=== PATIENT | male | born 1945 | race Caucasian/White ===

== ENCOUNTER 2020-03-19 06:56 | Outpatient (REF) | payer MEDICARE, MEDICAID, SELFPAY ==
--- NOTE | 2020-03-19 07:14 | XR_ITS ---
EXAMINATION: XR HIP, LEFT CLINICAL INFORMATION: Left hip pain. COMPARISON: None TECHNIQUE: 2 views of the left hip. FINDINGS: There is no fracture, dislocation or destructive process. There is mild hip joint narrowing. Fine chondrocalcinosis involves the articular cartilage. There are no erosive changes. There are mild degenerative changes left sacroiliac joint. Visualized pubis is unremarkable. Soft tissue planes are unremarkable. XR/XR hip LT min 2V IMPRESSION: 1. Mild left hip joint narrowing. Chondrocalcinosis articular cartilage. No erosive change. 2. Mild degenerative changes sacroiliac joint.
[2020-03-19 08:14] LABS: Alanine Aminotransferase 26 U/L (0-40); Albumin Level 4.1 g/dL (3.5-5.0); Alkaline Phosphatase 59 U/L (39-117); Anion Gap 12 (12-20); Aspartate Amino Transferase 21 U/L (5-37); Bilirubin Direct 0.2 mg/dL (0.0-0.5); Bilirubin Total 0.4 mg/dL (0.0-1.0); Blood Urea Nitrogen 7 mg/dL (9-16); Calcium 9.1 mg/dL (8.4-10.2); Carbon Dioxide 31 mmol/L (22-29); Chloride 95 mmol/L (96-108); Cholesterol 160 mg/dL; Estimated Glomerular Filt Rate > 60; Glucose Random 102 mg/dL (60-115); HDL Cholesterol 59 mg/dL; LDL Cholesterol Calculated 88 mg/dl; Potassium 4.4 mmol/l (3.3-5.1); Sodium 134 mmol/L (135-145); Total Protein 7.1 g/dL (6.5-8.0); Triglycerides 68 mg/dL
[2020-03-19 08:37] LABS: Thyroid Stimulating Hormone 0.79 mIU/mL (0.32-4.0)
== END 2020-03-19 06:57 | disposition home or self-care (01) ==
LOC: HO.LAB 06:56
PROVIDERS: Visit Provider Student in an Organized Health Care Education/Training Program
DX: M25.552 Pain in left hip (principal); E03.9 Hypothyroidism, unspecified; E78.00 Pure hypercholesterolemia, unspecified; I10 Essential (primary) hypertension
CPT/HCPCS: 73502; 80048; 80061; 80076; 84443

== ENCOUNTER 2021-09-21 11:17 | Outpatient (REF) | payer MEDICARE, MEDICAID, SELFPAY ==
--- NOTE | ~2021-09-21 | XR_ITS ---
EXAMINATION: XR CHEST CLINICAL INFORMATION: Short of breath COMPARISON: 07/17/2011 TECHNIQUE: 2 views of the chest were obtained. FINDINGS: The lungs are well expanded. There is no focal consolidation, edema, or effusion. No pneumothorax. The cardiomediastinal silhouette is within normal limits of size with a tortuous and calcified aorta. No acute osseous abnormality. XR/XR chest 2V IMPRESSION: Clear lungs.
== END 2021-09-21 11:18 | disposition home or self-care (01) ==
LOC: HO.XRAY 11:17
PROVIDERS: PCP Student in an Organized Health Care Education/Training Program; Visit Provider Student in an Organized Health Care Education/Training Program
DX: R06.02 Shortness of breath (principal)
CPT/HCPCS: 71046

== ENCOUNTER 2023-02-19 18:09 | Outpatient (REF) | payer MEDICARE, MEDICAID, SELFPAY ==
[2023-02-19 19:03] LABS: Influenza A PCR NEGATIVE (Negative); Influenza B PCR NEGATIVE (Negative); Resp Syncy Virus RNA Qual PCR NEGATIVE (Negative); SARS COV2 PCR INHOUSE NEGATIVE (Negative)
== END 2023-02-19 18:10 | disposition home or self-care (01) ==
LOC: HO.CHCLNP 18:09
PROVIDERS: Visit Provider Registered Nurse
DX: Z20.822 Contact with and (suspected) exposure to COVID-19 (principal); B34.9 Viral infection, unspecified
CPT/HCPCS: 0241U; 87070

== ENCOUNTER 2023-03-01 11:46 | Outpatient (REF) | payer MEDICARE, MEDICAID, SELFPAY ==
[2023-03-01 14:31] LABS: MANUAL DIFF FLAG NO
[2023-03-01 14:38] LABS: Basophils Absolute Auto 0.1 X10*3/uL (0.0-0.2); Basophils Percent Auto 0.8 % (0-2); Eosinophils Absolute Auto 0.5 X10*3/uL (0.0-0.4); Eosinophils Percent Auto 3.4 % (0-4); Hematocrit 37.4 % (42.0-52.0); Hemoglobin 12.1 g/dl (14.0-18.0); Imm Gran Abs Auto 0.06 X10*3/uL (0.00-0.03); Imm Gran Pct Auto 0.5 % (0.0-0.4); Lymphocytes Absolute Auto 0.8 X10*3/uL (1.2-4.9); Lymphocytes Percent Auto 6.2 % (20-40); Mean Corpuscular HGB Conc 32.4 g/dl (31.0-36.0); Mean Corpuscular Hemoglobin 27.8 pg (27.0-33.0); Mean Corpuscular Volume 85.8 fL (80.0-98.0); Mean Platelet Volume 8.7 fL (9.4-12.4); Monocytes Absolute Auto 1.2 X10*3/uL (0.1-1.2); Monocytes Percent Auto 9.2 % (2-11); Neutrophils Absolute Auto 10.5 x10*3/uL (2.0-8.3); Neutrophils Percent Auto 79.9 % (45-73); Platelet Count 375 X10*3/uL (160-400); Red Blood Count 4.36 X10*6/uL (4.60-5.80); Red Cell Distribution Width 14.3 % (11.0-16.0); White Blood Count 13.2 X10*3/uL (4.8-10.8)
[2023-03-01 15:01] LABS: Alanine Aminotransferase 14 U/L (0-40); Albumin Level 3.8 g/dL (3.5-5.0); Alkaline Phosphatase 51 U/L (39-117); Anion Gap 16 (12-20); Aspartate Amino Transferase 17 U/L (5-37); Bilirubin Direct 0.3 mg/dL (0.0-0.5); Bilirubin Total 0.5 mg/dL (0.0-1.0); Blood Urea Nitrogen 10 mg/dL (9-16); Calcium 9.4 mg/dL (8.4-10.2); Carbon Dioxide 24 mmol/L (22-29); Chloride 96 mmol/L (96-108); Cholesterol 119 mg/dL (<200); Estimated Glomerular Filt Rate > 60; Glucose Fasting 99 mg/dL (60-99); HDL Cholesterol 53 mg/dL (>40); LDL Cholesterol Calculated 55 mg/dL (<100); Potassium 4.1 mmol/L (3.3-5.1); Sodium 132 mmol/L (135-145); Triglycerides 55 mg/dL (<150)
[2023-03-01 15:17] LABS: Thyroid Stimulating Hormone 0.45 uIU/mL (0.32-4.0)
== END 2023-03-01 11:47 | disposition home or self-care (01) ==
LOC: HO.CHCLDS 11:46
PROVIDERS: Visit Provider Student in an Organized Health Care Education/Training Program
DX: Z12.5 Encounter for screening for malignant neoplasm of prostate (principal); R63.4 Abnormal weight loss; I21.9 Acute myocardial infarction, unspecified; I25.10 Atherosclerotic heart disease of native coronary artery without angina pectoris; E78.5 Hyperlipidemia, unspecified
CPT/HCPCS: 36415; 80048; 80061; 80076; 84153; 84443; 85025

== ENCOUNTER 2023-04-02 09:43 | Outpatient (REF) | payer MEDICARE, MEDICAID, SELFPAY ==
--- NOTE | ~2023-04-02 | US_ITS ---
EXAMINATION: US THYROID CLINICAL INFORMATION: Nontoxic single thyroid nodule. COMPARISON: None available. TECHNIQUE: Linear transducer barone-scale and color Doppler examination with attention to the region of the thyroid. Technically limited visualization secondary to thyroid gland low in neck. FINDINGS: SIZE: Measurements of the thyroid lobes and nodules are given in sagittal, anteroposterior and transverse dimensions respectively. Right Thyroid Lobe: 5.8 x 2.8 x 2.2 cm, volume 18.4 mL. Parenchyma: The gland echotexture is heterogeneous. Thyroid vascularity is normal. Left Thyroid Lobe: 5.7 x 2.0 x 2.3 cm, volume 13.6 mL. Parenchyma: The gland echotexture is heterogeneous. Thyroid vascularity is normal. Isthmus: 0.4 cm in maximum AP dimension. Estimated total number of nodules greater than or equal to 1 cm: 2. Busboy nodules are described as follows: 1. Location: Right isthmus. Size: 0.4 x 0.4 x 0.6 cm, volume 0.05 mL. Nodule characteristics: Composition: Solid (2). Echogenicity: Isoechoic (1). Shape: Not taller than wide (0). Margins: Smooth (0). Echogenic Foci: None (0). ACR TI-RADS total points: 3 ACR TI-RADS category: 3 2. Location: Right inferior. Size: 3.1 x 2.3 x 3.4 cm, volume of 12.6 mL. Nodule characteristics: Composition: Cannot be determined (2). Echogenicity: Very hypoechoic (3). Shape: Taller than wide (3). Margins: Irregular (2). Echogenic Foci: Macrocalcifications (1). Peripheral calcifications (2). ACR TI-RADS total points: 13 ACR TI-RADS category: 5 3. Location: Left inferior. Size: 1.7 x 1.6 x 1.6 cm, volume 2.2 mL. Nodule characteristics: Composition: Solid (2). Echogenicity: Hypoechoic (2). Shape: Not taller than wide (0). Margins: Lobulated (2). Echogenic Foci: Macrocalcifications (1). Peripheral calcifications (2). ACR TI-RADS total points: 9 ACR TI-RADS category: 5 NODES: No lymphadenopathy is seen in the tissue surrounding the thyroid gland. US/US thyroid IMPRESSION: Enlarged, heterogeneous multinodular thyroid gland. Right 3.4 cm TR 5 nodule and left 1.7 cm TR 5 nodule meet criteria for biopsy. Fine-needle aspiration recommended. This study was presented today 04/03/2023 at 6:30 AM for interpretation. PSA staff will provide results to referring provider at this time. ACR TI-RADS RECOMMENDATION REFERENCE: Ultrasound-guided fine-needle aspiration, followup ultrasound, no further follow up. * TR1 (0 point) and TR2 (2 points): No FNA or follow up. * TR3 (3 points): FNA if more than or equal to 2.5 cm in maximum dimension, followup ultrasound in 1, 3 and 5 years if 1.5 to 2.4 cm in maximum dimension. * TR4 (4-6 points): FNA if more than or equal to 1.5 cm in maximum dimension, followup ultrasound in 1, 2, 3 and 5 years if 1 to 1.4 cm in maximum dimension. * TR5 (more than or equal to 7 points): FNA if more than or equal to 1 cm in maximum dimension, followup ultrasound every year for 5 years if 0.5 to 0.9 cm in maximum dimension. * TR3, TR4 or TR5 nodules that are below the size threshold for followup receive no follow up.
== END 2023-04-02 09:44 | disposition home or self-care (01) ==
LOC: HO.US 09:43
PROVIDERS: Visit Provider Student in an Organized Health Care Education/Training Program
DX: E04.1 Nontoxic single thyroid nodule (principal)
CPT/HCPCS: 76536

== ENCOUNTER → 2023-04-13 13:20 | Outpatient (BNV) | payer MEDICARE, SELFPAY | PROVIDERS: PCP Student in an Organized Health Care Education/Training Program; Referring Provider Student in an Organized Health Care Education/Training Program; Visit Provider Internal Medicine Medical Oncology | DX: R63.4 Abnormal weight loss (principal); R91.8 Other nonspecific abnormal finding of lung field | CPT/HCPCS: 99203; 99213 ==

== ENCOUNTER 2023-06-01 13:42 | Outpatient (REF) | payer MEDICARE, SELFPAY ==
--- NOTE | ~2023-06-01 | CT_ITS ---
EXAMINATION: CT CHEST WITHOUT CONTRAST CLINICAL INFORMATION: Abnormal weight loss COMPARISON: None available. TECHNIQUE: Multidetector volumetric CT imaging of the chest was done. Axial MIP volume rendering provided. Sagittal and coronal reformatted images were obtained. This CT examination was performed using dose optimization techniques as appropriate, variously including the following: *Automated exposure control *Adjustment of mA and/or kV according to patient size (this includes techniques or standardized protocols for targeted exams where dose is matched to indication/reason for exam; i.e. extremities or head) *Use of iterative reconstruction technique DLP: 140.35 mGy-cm FINDINGS: LUNGS: Curvilinear atelectasis is seen in medial right lower lobe posterior basal segment. Sagittal atelectasis is seen at the medial border of left lower lobe posterior basal segment. -Nodule #1 (Series 5, image 113): 3.1 mm solid nodule, lateral peripheral right upper lobe apical segment. -Nodule #2 (Series 5, image 215): 3.6 mm solid nodule, posterior medial border of right upper lobe apical segment. -Nodule #3 (Series 5, image 252): 2.9 mm solid nodule, left upper lobe anterior segment. -Nodule #4 (Series 5, image 304): 3.1 mm solid nodule, left upper lobe anterior segment. -Nodule #5 (Series 5, image 306): 5.4 mm solid nodule, right lower lobe superior segment juxtapleural nodule attached to right major fissure. PLEURA: No pleural effusion or pneumothorax is seen. PERICARDIUM: No pericardial effusion is seen. MEDIASTINUM AND TOMASZ: A cluster of pretracheal and precarinal lymph nodes are seen. The largest right lower paratracheal lymph node containing central fatty hilum, measures 1.2 cm in short axis, series 3 image #24. Inadequate evaluation of the mediastinal and hilar lymph nodes due to absence of IV contrast filling the surrounding blood vessels. TRACHEOBRONCHIAL TREE: Trachea and bilateral mainstem bronchi are patent. THORACIC AORTA: The thoracic aorta is normal in size with scattered atherosclerotic calcifications. CORONARY ARTERY CALCIFICATIONS: Marked extensive PULMONARY ARTERIES: The main pulmonary arteries appear to be normal in size. CHEST WALL AND LOWER NECK: The subcutaneous and muscular chest wall are intact with no focal lesion. No abnormal mass lesion could be seen in the visualized lower neck. BONES: Mild thoracic dextroscoliosis, multilevel advanced degenerative thoracic disc disease, prominent sharp anterior and lateral syndesmophytes are present. No fracture or dislocation. No focal bone lesion diagnostic of metastatic disease could be seen in the thorax. VISUALIZED UPPER ABDOMEN: Bilateral adrenal glands are not enlarged. A simple cyst is seen in left hepatic dome segment 4A measuring 1.5 cm in diameter, mean attenuation of [address]/CT chest wo IV con IMPRESSION: 1. Multiple bilateral lung nodules are seen, as described above. The largest measures 5.4 mm in the right lower lobe attached to the right major fissure. 2. A cluster of pretracheal and precarinal lymph nodes are seen, the largest right lower paratracheal lymph node containing central fatty hilum, measures 1.2 cm in short axis. 3. Simple cyst in left hepatic dome segment 4A. According to the UPDATED 2017 Fleischner Society recommendations, the advised follow-up imaging for solid nodules <6 mm in the middle/lower lobes is no routine follow up. Fleischner guidelines were followed.
== END 2023-06-01 13:43 | disposition home or self-care (01) ==
LOC: HO.CT 13:42
PROVIDERS: PCP Student in an Organized Health Care Education/Training Program; Visit Provider Internal Medicine Medical Oncology
DX: R63.4 Abnormal weight loss (principal)
CPT/HCPCS: 71250

== ENCOUNTER 2023-09-07 10:11 | Outpatient (REF) | payer MEDICARE, SELFPAY ==
[2023-09-07 14:53] LABS: MANUAL DIFF FLAG NO
[2023-09-07 14:58] LABS: Basophils Absolute Auto 0.1 X10*3/uL (0.0-0.2); Basophils Percent Auto 1.3 % (0-2); Eosinophils Absolute Auto 0.4 X10*3/uL (0.0-0.4); Eosinophils Percent Auto 9.2 % (0-4); Hematocrit 35.6 % (42.0-52.0); Hemoglobin 11.1 g/dl (14.0-18.0); Lymphocytes Absolute Auto 1.2 X10*3/uL (1.2-4.9); Lymphocytes Percent Auto 24.4 % (20-40); Mean Corpuscular HGB Conc 31.2 g/dl (31.0-36.0); Mean Corpuscular Hemoglobin 27.6 pg (27.0-33.0); Mean Corpuscular Volume 88.6 fL (80.0-98.0); Mean Platelet Volume 9.2 fL (9.4-12.4); Monocytes Absolute Auto 0.4 X10*3/uL (0.1-1.2); Monocytes Percent Auto 7.3 % (2-11); Neutrophils Absolute Auto 2.8 x10*3/uL (2.0-8.3); Neutrophils Percent Auto 57.8 % (45-73); Platelet Count 338 X10*3/uL (160-400); Red Blood Count 4.02 X10*6/uL (4.60-5.80); Red Cell Distribution Width 15.4 % (11.0-16.0); White Blood Count 4.8 X10*3/uL (4.8-10.8)
== END 2023-09-07 10:12 | disposition home or self-care (01) ==
LOC: CF 10:11
PROVIDERS: Visit Provider Student in an Organized Health Care Education/Training Program
DX: D50.0 Iron deficiency anemia secondary to blood loss (chronic) (principal)
CPT/HCPCS: 36415; 85025

== ENCOUNTER 2024-07-15 09:27 | Outpatient (REF) | payer MEDICARE, SELFPAY ==
--- OUTSIDE RECORDS SUMMARY | 2024-07-15 10:14 | XMS_ITS | Encounter Summary ---
Author Organization [employer] Address [address] [place] [address] Care Team Providers Care Pouncer Name Role Phone Brianna Corral MD Primary Care Provider [phone] Reason for Visit * Reason Comments Transition Of Care (Tcm) HDF scheduled Encounter Details Date Type Department Care Team ([facility] st Contact Info) Description 07/07/2024 Patient Outreach [facility] MEDICINE [address] [place] [address] Brianna Corral MD [address] [place] [address] Transition Of Care (Tcm) (HDF scheduled) Social History Tobacco Use Types Packs/Day Years Used Date Smoking Tobacco: Former Cigarettes Smokeless Tobacco: Never Alcohol Use Standard Drinks/Week Comments Never 0 (1 standard drink = 0.6 oz pur e alcohol) Depression Answer Date Recorded Patient Health Questionnaire-9 Score 4 09/07/2023 Patient Health Questionnaire-9 Score 4 09/07/2023 Last PHQ-9: Questionnaire Data Not on file 0 09/07/2023 Housing Stability Answer Date Recorded What is your housing situation today? I have juanjose mathis 04/25/[address] you li ve. Do you have problems with any of the following? None of the above 04/25/2023 Food Insecurity Answer Date Recorded Within the past 12 months, y ou worried that your food would run out before you got money to buy more: Never True 04/25/2023 Within the past 12 months,th e food you bought just didn't last and you didn't have enough money to get more: Never True Transportation Answer Date Recorded In the past 12 months, has l ack of transportation kept you from medical appts, meetings, work or from getting things needed for daily living? No 04/25/2023 Utilities Answer Date Recorded In the past 12 months, has t he electric, gas, oil or water company threatened to shut off services in your home? No 04/25/2023 Depression Answer Date Recorded Patient Health Questionnaire-2 Score 2 09/07/2023 Sex and Gender Information Value Date Recorded Sex Assigned at Male 03/27/2022 10:26 AM EDT Legal Sex Male 10:26 AM EDT Gender Identity Transgender Male 03/27/2022 10:2 6 AM EDT Sexual Orientation Straight 03/02/2023 2: 51 PM EDT documented as of this encounter Miscellaneous Notes * Significant Event - Abbey Dietz - 07/07/2024 3:30 PM EST 07/07/24 1529 Hospital Discharges and Admission for [facility] Type of Visit Hospital Admission Date of Admission/Visit 06/04/24 Date of Discharge 07/09/24 Facility [facility] Diagnosis Pneumonia Disposition Discharged Home Follow-Up Actions Follow-Up Needed Provider appointment Follow-Up Outcome Spoke to Caregiver Initial Contact Date 07/07/24 Received incoming call from the [facility] Line. CM Spoke with Stacia from [phone] Patient has been scheduled for an HDF appointment on 07/15/2024 at 9:[address] Taylor requested discharge summaries to be faxed to the Care Management Department at [phone]. CC will follow up on discharge summary following patient's discharge. Insurance verified prior to scheduling. documented in this encounter Plan of Treatment Upcoming Encounters Date Type Department Care Team (Late st Contact Info) Description 07/22/2024 2:00 PM EST Office Visit [facility] ADULT D[facility]AL [address] [place] [address] Joyce Edwards [address] [place] [address] documented as of this encounter Visit Diagnoses Not on filedocumented in this encounter Additional Health Concerns Assessment Noted Time PHQ-9 Depression Total Score: 4 09/07/19 24 9:31 AM EDT documented as of this encounter Care Teams Pouncer Relationship Specialty Start Date End Date Brianna Corral MD [address] [place] [id number] PCP - General Family Medicine 10/06/14 Consignd 04/22/24 documented as of this encounter
--- OUTSIDE RECORDS SUMMARY | 2024-07-15 10:14 | XMS_ITS ---
Author Organization [facility] Address [address] [place] [address] Care Team Providers Care Access Services Assistant Name Role Phone YAQUELIN PONCHO Primary Care Provider Unavailabl e Jean Marie Sequeira Unavailable [phone] Nurys Landeros Unavailable Unavailable Encounters Encounter Location Date Provider Diagnosis [facility] [address] [place] [address] 12/11/2023 Jean Marie Sequeira PLAN OF TREATMENT No Information
--- OUTSIDE RECORDS SUMMARY | 2024-07-15 10:14 | XMS_ITS | Encounter Summary ---
Author Organization [employer] Address [address] [place] [address] Care Team Providers Care Investment Recovery Technician Name Role Phone Vickie Claire MD Primary Care Provider + Encounter Details Date Type Department Care Team (Late st Contact Info) Description 06/05/2024 Lab Requisition [facility] - Main Lab [address] [facility] [place] [address] Vickie Claire MD [address] [address] Essential (primary) hypertension; Pneumonia, unspecified organism Social History Tobacco Use Types Packs/Day Years Used Date Smoking Tobacco: Never Assessed Sex and Gender Information Value Date Recorded Sex Assigned at Not on file Legal Sex Male 10:09 PM EST Gender Identity Not on file Sexual Orientation Not on file documented as of this encounter Plan of Treatment Not on file documented as of this encounter Procedures Procedure Name Priority Date/Time Associated Diagnosis Comments COMPLETE BLOOD COUNT Routine 06/05/2024 9:58 AM EST Essential (primary) hypertension Pneumonia, unspecified organism BASIC METABOLIC PANEL Routine 06/05/2024 9:58 AM EST Essential (primary) hypertension Pneumonia, unspecified organism documented in this encounter Results * (ABNORMAL) Basic metabolic panel (06/05/2024 9:58 AM EST) Sodium 136 133 - 145 mmol/L LAB CHEMISTRY METHOD 06/05/2024 12:08 PM [facility] Potassium 3.8 3.5 - 5.5 mmol/L LAB CHEMISTRY METHOD 06/05/2024 12:08 PM EST [facility] Chloride 100 96 - 110 mmol/L LAB CHEMISTRY METHOD 06/05/2024 12:08 PM [facility] CO2 29 21 - 32 mmol/L LAB CHEMISTRY METHOD 06/05/2024 12:08 PM [facility] Anion Gap 7 3 - 11 LAB CHEMISTRY METHOD 06/05/2024 12:08 PM [facility] Glucose 135(H) 70 - 100 mg/dL LAB CHEMISTRY METHOD 06/05/2024 12:08 PM [facility] BUN 12 5 - 25 mg/dL LAB CHEMISTRY METHOD 06/05/2024 12:08 PM [facility] Creatinine 0.59(L) 0.70 - 1.30 mg/dL LAB CHEMISTRY METHOD 06/05/2024 12:08 PM [facility] eGFR 100 >=60 mL/min/1. 73m2 LAB CHEMISTRY METHOD 06/05/2024 12:08 PM [facility] Comment:Calculation based on the??Chronic Kidney Disease Epidemiology Collaboration (CKD-EPI) equation refit??without adjustment for race. BUN/Creatinine Ratio 20.3 LAB CHEMISTRY METHOD 06/05/2024 12:08 PM [facility] Calcium 8.6 8.5 - 10.5 mg/dL LAB CHEMISTRY METHOD 06/05/2024 12:08 PM [facility] Blood Venous blood specimen / Unknown Venipuncture / Unknown 06/05/2024 9:58 AM EST 06/05/2024 10:46 AM EST us Vickie Claire MD LAB BLOOD ORDERABLES Fin al Result [facility] [address] [place] [address], * (ABNORMAL) Complete blood count (06/05/2024 9:58 AM EST) WBC 11.2(H) 4.8 - 10.8 K/mcL LAB HEMETOLOGY METHOD 06/05/2024 11:04 AM [facility] RBC 4.20(L) 4.50 - 5.50 M/mcL LAB HEMETOLOGY METHOD 06/05/2024 11:04 AM [facility] Hemoglobin 11.5(L) 13.5 - 17.5 g/dL LAB HEMETOLOGY METHOD 06/05/2024 11:04 AM [facility] Hematocrit 36.5(L) 42.0 - 54.0 % LAB HEMETOLOGY METHOD 06/05/2024 11:04 AM [facility] MCV 86.3 79.0 - 98.0 FL LAB HEMETOLOGY METHOD 06/05/2024 11:04 AM [facility] MCH 27.2 27.0 - 32.0 pcg LAB HEMETOLOGY METHOD 06/05/2024 11:04 AM [facility] MCHC 31.5(L) 32.0 - 37.0 g/dL LAB HEMETOLOGY METHOD 06/05/2024 11:04 AM [facility] RDW 15.3(H) 11.0 - 15.0 % LAB HEMETOLOGY METHOD 06/05/2024 11:04 AM [facility] Platelets 476(H) 130 - 400 K/mcL LAB HEMETOLOGY METHOD 06/05/2024 11:04 AM [facility] MPV 9.1 7.0 - 11.0 FL LAB HEMETOLOGY METHOD 06/05/2024 11:04 AM [facility] NRBC 0.0 <1.0 % LAB HEMETOLOGY METHOD 06/05/2024 11:04 AM [facility] NRBC Absolute 0.00 <0.10 K/mcL LAB HEMETOLOGY METHOD 06/05/2024 11:04 AM [facility] Blood Venous blood specimen / Unknown Venipuncture / Unknown 06/05/2024 9:58 AM EST 06/05/2024 10:46 AM EST us Vickie Claire MD LAB BLOOD ORDERABLES Fin al Result [facility] [address] [place] [address], documented in this encounter Visit Diagnoses Diagnosis Essential (primary) hypertension Unspecified essential hypertension Pneumonia, unspecified organism documented in this encounter Care Teams Investment Recovery Technician Relationship Specialty Start Date End Date Vickie Claire MD [address] [place] [address] PCP - General Family Medicine 06/05/24 documented as of this encounter
--- OUTSIDE RECORDS SUMMARY | 2024-07-15 10:14 | XMS_ITS | Encounter Summary ---
Author Organization [employer] Address [address] [place] [address] Care Team Providers Care Incising Machine Operator Name Role Phone Brianna Corral MD Primary Care Provider [phone] Encounter Details Date Type Department Care Team (Late Contact Info) Description 10/02/2022 Orders Only [facility] MED & PEDS [address] [place] [address] Hailey Taylor LPN Social History Tobacco Use Types Packs/Day Years Used Date Smoking Tobacco: Former Cigarettes Smokeless Tobacco: Never Alcohol Use Standard Drinks/Week Comments Never 0 (1 standard drink = 0.6 oz pur e alcohol) Sex and Gender Information Value Date Recorded Sex Assigned at Male 03/27/2022 10:26 AM EDT Legal Sex Male 10:26 AM EDT Gender Identity Transgender Male 03/27/2022 10:2 6 AM EDT Sexual Orientation Straight 03/02/2023 2: 51 PM EDT documented as of this encounter Plan of Treatment Upcoming Encounters Date Type Department Care Team (Late Contact Info) Description 07/22/2024 2:00 PM EST Office Visit [facility] AD[facility] D[facility] [address] [place] [address] Joyce Edwards [address] [place] [address] documented as of this encounter Visit Diagnoses Not on filedocumented in this encounter Care Teams Incising Machine Operator Relationship Specialty Start Date End Date Brianna Corral MD [address] [place] [address] PCP - General Family Medicine 10/06/14 [place] 04/22/24 documented as of this encounter
--- OUTSIDE RECORDS SUMMARY | 2024-07-15 10:14 | XMS_ITS | Encounter Summary ---
Author Organization [employer] Address [address] [place] [address] Care Team Providers Care Resource Paraprofessional Name Role Phone Brianna Corral MD Primary Care Provider [phone] Reason for Visit * Reason Onset Date Comments [facility] 12/12/2023 Encounter Details Date Type Department Care Team ([facility] st Contact Info) Description 12/12/[address] [facility] MEDICINE [address] [place] [address] Brianna Corral MD [address] [place] [address] [facility] Social History Tobacco Use Types Packs/Day Years [...] as of this encounter Miscellaneous Notes * Telephone Encounter - James Santoro - 12/12/2023 8:20 AM EDT Tc from [facility] with [facility] calling from Dr. Sequeira office informing pt no call no show his appt. documented in this encounter Plan of Treatment Upcoming Encounters Date Type Department Care Team (Late st Contact Info) Description 07/22/2024 2:00 PM EST Office Visit [facility] [address] [place] [address] EdwardsBeth mathiassharita [address] [place] [address] documented as of this encounter Visit Diagnoses Not on filedocumented in this encounter Additional Health Concerns Assessment Noted Time PHQ-9 Depression Total Score: 4 09/07/19 9:31 AM EDT documented as of this encounter Care Teams Resource Paraprofessional Relationship Specialty Start Date End Date Brianna Corral MD [address] [place] [address] PCP - General Family Medicine 10/06/14 [place] 04/22/24 documented as of this encounter
--- OUTSIDE RECORDS SUMMARY | 2024-07-15 10:14 | XMS_ITS | Encounter Summary ---
Author Organization [employer] Address [address] [place] [address] Care Team Providers Care Supervising Law Enforcement Analyst Name Role Phone Brianna Corral MD Primary Care Provider [phone] Reason for Visit * Reason Comments Med Refill Encounter Details Date Type Department Care Team (Late st Contact Info) Description 06/27/[address] [facility]EDS [address] [place] [address] Brianna Corral MD [address] [place] [address] Hypothyroidism, unspecified type Social History Tobacco Use Types Packs/Day Years [...] 07/22/2024 2:00 PM EST Office Visit [facility] [address] [place] [address] Beth Edwardsanpresamuel [address] [place] [address] documented as of this encounter Visit Diagnoses Diagnosis Hypothyroidism, unspecified type documented in this encounter Additional Health Concerns Assessment Noted Time PHQ-9 Depression Total Score: 4 09/07/19 24 9:31 AM EDT documented as of this encounter Care Teams Supervising Law Enforcement Analyst Relationship Specialty Start Date End Date Brianna Corral MD [address] [place] [address] PCP - General Family Medicine 10/06/14 [employer] 04/22/24 documented as of this encounter
--- OUTSIDE RECORDS SUMMARY | 2024-07-15 10:14 | XMS_ITS ---
Author Organization [facility] Address [address] [place] [address] Care Team Providers Care Radio Station Manager Name Role Phone YAQUELIN PONCHO Primary Care Provider Unavaildagoberto e Jean Marie Sequeira Unavailable [phone] Nurys Landeros Unavailable Unavailable REASON FOR VISIT Patient presents today for weight loss Encounters Encounter Location Date Provider Diagnosis [facility] [address] [place] [address] 08/15/2023 Jean Marie Sequeira PLAN OF TREATMENT No Information
--- OUTSIDE RECORDS SUMMARY | 2024-07-15 10:14 | XMS_ITS | Encounter Summary ---
Author Organization [employer] Address [address] [place] [address] Care Team Providers Care Semi Driver Name Role Phone Vickie Claire MD Primary Care Provider + Encounter Details Date Type Department Care Team (Late st Contact Info) Description 06/09/2024 Lab Requisition [facility] - Main Lab [address] [facility] [place] [address] Vickie Claire MD [address] [id number] Pneumonia, unspecified organism; Hyperlipidemia, unspecified Social History Tobacco Use Types Packs/Day Years [...] Associated Diagnosis Comments COMPLETE BLOOD COUNT Routine 06/10/2024 6:48 AM EST Pneumonia, unspecified organism Hyperlipidemia, unspecified BASIC METABOLIC PANEL Routine 06/10/2024 6:48 AM EST Pneumonia, unspecified organism Hyperlipidemia, unspecified documented in this encounter Results * (ABNORMAL) Basic metabolic panel (06/10/2024 6:48 AM EST) Sodium 135 133 - 145 mmol/L LAB CHEMISTRY METHOD 06/10/2024 8:51 AM EST [facility] Potassium 4.8 3.5 - 5.5 mmol/L LAB CHEMISTRY METHOD 06/10/2024 8:51 AM EST [facility] Chloride 101 96 - 110 mmol/L LAB CHEMISTRY METHOD 06/10/2024 8:51 AM [facility] CO2 31 21 - 32 mmol/L LAB CHEMISTRY METHOD 06/10/2024 8:51 AM [facility] Anion Gap 3 3 - 11 LAB CHEMISTRY METHOD 06/10/2024 8:51 AM [facility] Glucose 83 70 - 100 mg/dL LAB CHEMISTRY METHOD 06/10/2024 8:51 AM [facility] BUN 8 5 - 25 mg/dL LAB CHEMISTRY METHOD 06/10/2024 8:51 AM [facility] Creatinine 0.63(L) 0.70 - 1.30 mg/dL LAB CHEMISTRY METHOD 06/10/2024 8:51 AM [facility] eGFR 98 >=60 mL/min/1. 73m2 LAB CHEMISTRY METHOD 06/10/2024 8:51 AM [facility] Comment:Calculation based on the??Chronic Kidney Disease Epidemiology Collaboration (CKD-EPI) equation refit??without adjustment for race. BUN/Creatinine Ratio 12.7 LAB CHEMISTRY METHOD 06/10/2024 8:51 AM [facility] Calcium 8.4(L) 8.5 - 10.5 mg/dL LAB CHEMISTRY METHOD 06/10/2024 8:51 AM [facility] Blood Venous blood specimen / Unknown Venipuncture / Unknown 06/10/2024 6:48 AM EST 06/10/2024 7:48 AM EST us Vickie Claire MD LAB BLOOD ORDERABLES Fin al Result [facility] [address] [place] [address], * (ABNORMAL) Complete blood count (06/10/2024 6:48 AM EST) WBC 6.9 4.8 - 10.8 K/mcL LAB HEMETOLOGY METHOD 06/10/2024 8:14 AM [facility] RBC 4.00(L) 4.50 - 5.50 M/mcL LAB HEMETOLOGY METHOD 06/10/2024 8:14 AM [facility] Hemoglobin 11.1(L) 13.5 - 17.5 g/dL LAB HEMETOLOGY METHOD 06/10/2024 8:14 AM [facility] Hematocrit 35.5(L) 42.0 - 54.0 % LAB HEMETOLOGY METHOD 06/10/2024 8:14 AM [facility] MCV 89.4 79.0 - 98.0 FL LAB HEMETOLOGY METHOD 06/10/2024 8:14 AM [facility] MCH 28.0 27.0 - 32.0 pcg LAB HEMETOLOGY METHOD 06/10/2024 8:14 AM [facility] MCHC 31.3(L) 32.0 - 37.0 g/dL LAB HEMETOLOGY METHOD 06/10/2024 8:14 AM [facility] RDW 15.5(H) 11.0 - 15.0 % LAB HEMETOLOGY METHOD 06/10/2024 8:14 AM [facility] Platelets 656(H) 130 - 400 K/mcL LAB HEMETOLOGY METHOD 06/10/2024 8:14 AM [facility] MPV 9.1 7.0 - 11.0 FL LAB HEMETOLOGY METHOD 06/10/2024 8:14 AM [facility] NRBC 0.0 <1.0 % LAB HEMETOLOGY METHOD 06/10/2024 8:14 AM [facility] NRBC Absolute 0.00 <0.10 K/mcL LAB HEMETOLOGY METHOD 06/10/2024 8:14 AM [facility] Blood Venous blood specimen / Unknown Venipuncture / Unknown 06/10/2024 6:48 AM EST 06/10/2024 7:48 AM EST us Vickie Claire MD LAB BLOOD ORDERABLES Fin al Result [facility] [address] [place] [address], documented in this encounter Visit Diagnoses Diagnosis Pneumonia, unspecified organism Hyperlipidemia, unspecified documented in this encounter Care Teams Semi Driver Relationship Specialty Start Date End Date Vickie Claire MD [address] [place] [id number] PCP - General Family Medicine 06/05/24 documented as of this encounter
--- OUTSIDE RECORDS SUMMARY | 2024-07-15 10:14 | XMS_ITS | Encounter Summary ---
Author Organization [employer] Address [address] [place] [address] Care Team Providers Care Director Packaging Name Role Phone Brianna Corral MD Primary Care Provider [phone] Reason for Visit * Reason Onset Date Comments Hospital Follow-up 08/10/2023 Encounter Details Date Type Department Care Team ([facility] st Contact Info) Description 08/10/2023 Telephone [facility] CHC MED & PEDS [address] [place] [address] Brianna Corral MD [address] [place] [address] Hospital Follow-up Social History Tobacco Use Types Packs/Day Years Used Date Smoking Tobacco: Former Cigarettes Smokeless Tobacco: Never Alcohol Use Standard Drinks/Week Comments Never 0 (1 standard drink = 0.6 oz pur e alcohol) Housing Stability Answer Date Recorded What is your housing situation today? I have juanjosejorje mathis 04/25/[address] you [...] off services in your home? No 04/25/2023 Sex and Gender Information Value Date Recorded Sex Assigned at Male 03/27/2022 10:26 AM EDT Legal Sex Male 10:26 AM EDT Gender Identity Transgender Male 03/27/2022 10:2 6 AM EDT Sexual Orientation Straight 03/02/2023 2: 51 PM EDT documented as of this encounter Miscellaneous Notes * Telephone Encounter - James Santoro - 08/10/2023 9:40 AM EDT Tc from pt case technician requesting a HDF appt. Hospital: [facility] [place] Date of admission: 07/30/2023 Discharge date: 08/03/23 Diagnosed: Bleeding Please contact pt case technician @ [phone] documented in this encounter Plan of Treatment Upcoming Encounters Date Type Department Care Team (Late st Contact Info) Description 07/22/2024 2:00 PM EST Office Visit [facility] ADULT DENTAL [address] [place] [address] Arjun Edwardskevenet [address] [place] [address] documented as of this encounter Visit Diagnoses Not on filedocumented in this encounter Care Teams Director Packaging Relationship Specialty Start Date End Date Brianna Corral MD [address] [place] [address] PCP - General Family Medicine 10/06/14 [employer] 04/22/24 documented as of this encounter
--- OUTSIDE RECORDS SUMMARY | 2024-07-15 10:14 | XMS_ITS | Encounter Summary ---
Author Organization [employer] Address [address] [place] [address] Care Team Providers Care Veterinary Surgery Technician Name Role Phone Brianna Corral MD Primary Care Provider Reason for Visit * Reason Onset Date Comments Nurse Triage 05/19/2024 Encounter Details Date Type Department Care Team ([facility] st Contact Info) Description 05/19/2024 Telephone [facility] MEDICINE [address] [place] [address] Brianna Corral MD [address] [place] [address] Nurse Triage Social History Tobacco Use Types Packs/Day Years [...] encounter Miscellaneous Notes * Telephone Encounter - Joan Bangura LPN - 05/19/2024 2:33 PM EST Please review note below.Please review to see if patient may be eligible for additional services provided thru [facility] with his current insurance. Thank You. * Telephone Encounter - Joan Bangura LPN - 05/19/2024 2:09 PM EST Triage call returned to [facility] PT Nani per incoming message. Patient with chronic elevated BP reading with Nani in home over several weeks. BP today 184/90. Per Nani patient is asymptomatic and confirms medication compliance though Nani as PT does not know what medications he is on at this time. Nani reports concerns as patient no longer drives, is paying someone to grocery shop for him and does not have family involved. Feels that patient needs more services now with transportation and in home assistance for house chores and appts etc, Billie Judge listed as client case manager in chart. Message left at this time with her voice mail to follow with PT Nani and or Patient for concerns. Call to patient not answered. Will try alternate numbers at this time. Patient answered phone readily. No symptoms and reports BP all over the place has low readings attimes and then agrees today elevated when PT in home. No chest pain no headache no blurred vision. Reports I make sure I tke care of myself . Checks BP at home regularly and reports that he takes all meds provided by [facility] as pill fills. Unable to name medications at present. Patent advised to write down BP taken at home with date and time moving forward to review with PCP at next visit. Patient confirms that he lives in [place] reports sparse services provided and that he is paying someone to shop for groceries. States he only needs help to shop two times monthly. He feels unsteadyif trying to go to the store himself. Walks in his apartment and in the hallway daily and always carries his phone with him. Disposition reviewed and patient in agreement with plan. AMOL/ at 330 to review. Patient reached at [phone]. Reviewed with patient reasons to call back. Pt verbalized understanding and agrees. Forwarded to PCP and team as FYI to follow up PRN Protocol Used: Blood Pressure - High (Adult) Protocol-Based Disposition: See in Office or Video Visit Today Video visit offered and caller accepted Positive Triage Question: * Systolic BP >= 180 OR Diastolic >= 110 * All higher-acuity triage questions were negative Care Advice Discussed: * High Blood Pressure * Reasons To Call Back - Headache, blurred vision, difficulty talking, or difficulty walking occurs - Chest pain or difficulty breathing occurs - You want to go into the office for a blood pressure check - You become worse * Telephone Encounter - Judy Rae - 05/19/2024 1:46 PM EST Tc from [facility] with [facility] to report today pt BP reading 184/90. Symptom: High Blood Pressure - Caller Reports Outcome: Schedule a same-day appointment or talk to a nurse or provider today Reason: Caller denied all higher acuity questions The caller accepted this outcome. documented in this encounter Plan of Treatment Upcoming Encounters Date Type Department Care Team (Late st Contact Info) Description 07/22/2024 2:00 PM EST Office Visit [facility] CHC ADULT DENTAL [address] [place] [address] EdwardsBeth mathiassharita [address] [place] [address] documented as of this encounter Visit Diagnoses Not on filedocumented in this encounter Additional Health Concerns Assessment Noted Time PHQ-9 Depression Total Score: 4 09/07/19 24 9:31 AM EDT documented as of this encounter Care Teams Veterinary Surgery Technician Relationship Specialty Start Date End Date Brianna Corral MD [address] [place] [address] PCP - General Family Medicine 10/06/14 [employer] 04/22/24 documented as of this encounter
--- OUTSIDE RECORDS SUMMARY | 2024-07-15 10:14 | XMS_ITS | Encounter Summary ---
Author Organization [employer] Address [address] [place] [address] Care Team Providers Care Electrical Controls Designer Name Role Phone Brianna Corral MD Primary Care Provider [phone] Reason for Visit * Reason Comments Med Refill Encounter Details Date Type Department Care Team (Late st Contact Info) Description 11/06/2023 Refill [facility] CH[facility] MED & PEDS [address] [place] [address] Brianna Corral MD [address] [place] [address] Social History Tobacco Use Types Packs/Day Years [...] Description 07/22/2024 2:00 PM EST Office Visit [facility] ADULT DENTAL [address] [place] [address] Edwards Bethsharita [address] [place] [address] documented as of this encounter Visit Diagnoses Not on filedocumented in this encounter Additional Health Concerns Assessment Noted Time PHQ-9 Depression Total Score: 4 09/07/19 24 9:31 AM EDT documented as of this encounter Care Teams Electrical Controls Designer Relationship Specialty Start Date End Date Brianna Corral MD [address] [place] [address] PCP - General Family Medicine 10/06/14 [employer] 04/22/24 documented as of this encounter
--- OUTSIDE RECORDS SUMMARY | 2024-07-15 10:14 | XMS_ITS | Clinical Summary ---
Author Organization [employer] Address [address] [facility] [address] [place] [address] Care Team Providers Care Ui Lead Developer Name Role Phone Brianna Corral MD Primary Care Provider [phone] Allergies Active Allergy Reactions Criticality Noted Date Comments Chlorhexidine 08/11/2022 RASH New Skin 03/01/2023 Other reaction(s): RASH/ITCHY Wound Dressing Adhesive Rash Low 08/19/2013 Medications fluticasone (Flonase) 50 MCG/ACT nasal spray INHALE 1 - 2 SPRAYS IN EACH NOSTRIL ONCE DAILY NEEDED 16 g 1 03/07/20 23 Active donepezil (Aricept) 10 MG tablet Take 1 tablet by mouth at bedtime. 02/06/20 23 Active levETIRAcetam (Keppra) 250 MG tablet Take 1 tablet by mouth 2 times daily. 02/09/20 23 Active Rocklatan 0.02-0.005 % solution Instill 1 drop into both eyes every night 02/09/20 23 Active prazosin (Minipress) 5 MG capsule Take 1 capsule by mouth at bedtime. 02/07/20 23 Active nitroglycerin (Nitrostat) 0.[address] 1 tablet (0.4 mg) under the tongue every 5 (five) minutes if needed for chest pain. DISSOLVE 1 TABLET UNDER THE TONGUE EVERY 5 MINUTES NEEDED FOR CHEST PAIN. DO NOT EXCEED A TOTAL OF 3 DOSES IN 15 MINUTES. 30 tablet 11/02/19 24 Active carvedilol (Coreg) 12.5 MG tablet TAKE ONE TABLET IN THE MORNING AND EVENING WITH FOOD 180 tablet 3 11/30/19 24 Active loratadine (Claritin) 10 MG tabletIndicatio ns:Acute rhinitis TAKE ONE TABLET EVERY NIGHT AT BEDTIME NEEDED FOR ALLERGY 90 tablet 1 01/30/20 24 Active rosuvastatin (Crestor) 40 MG tablet TAKE ONE TABLET EVERY EVENING 30 tablet 5 02/19/20 24 Active tamsulosin (Flomax) 0.4 MG 24 hr capsuleIndicati ons:Benign prostatic hyperplasia, unspecified whether lower urinary tract symptoms present TAKE ONE CAPSULE EVERY MORNING 90 capsule 1 02/25/20 24 Active finasteride (Proscar) 5 MG tablet TAKE ONE TABLET EVERY MORNING 90 tablet 1 02/25/20 24 Active pantoprazole (ProtoNix) 20 MG EC tablet TAKE 1 TABLET EVERY MORNING 30 tablet 5 03/28/20 24 Active Aspirin Adult Low Strength 81 MG EC tabletIndicatio ns:Primary hypertension TAKE ONE TABLET EVERY MORNING 30 tablet 5 03/28/20 24 Active losartan-hydroC HLOROthiazide (Hyzaar) 50-12.5 MG tablet Take 1 tablet by mouth Once per day. 30 tablet 05/19/20 24 025 Active docusate sodium (Colace) 100 MG capsuleIndicati ons:Constipatio n, unspecified constipation type TAKE ONE CAPSULE IN THE MORNING AND EVENING 60 capsule 05/26/20 24 Active fluticasone furoate (Arnuity Ellipta) 200 MCG/ACT inhaler Inhale 1 puff Once per day. Rinse mouth with water after use to reduce aftertaste and incidence of candidiasis. Do not swallow. 1 each 05/27/20 24 025 Active levothyroxine (Synthroid, Levoxyl) 50 MCG tabletIndicatio ns:Hypothyroidi sm, unspecified type TAKE ONE TABLET AT NOON 90 tablet 3 07/08/19 25 Active traZODone (Desyrel) 50 MG tablet Take 25 mg by mouth at bedtime. 06/04/19 25 Active ibuprofen 800 MG tablet Take 1 tablet (800 mg) by mouth 3 times daily. 90 tablet 07/15/19 25 025 Active albuterol (ProAir HFA) 108 (90 Base) MCG/ACT inhalerIndicati ons:Asthma, unspecified asthma severity, unspecified whether complicated, unspecified whether persistent Inhale 2 puffs every 4 (four) hours if needed for wheezing or shortness of breath. 18 g 1 07/15/19 25 Active sodium chloride (Broncho Saline) 0.9 % aerosol solution Inhale 1 spray every 4 (four) hours if needed for wheezing. 90 mL 07/15/19 25 026 Active albuterol (ProAir HFA) 108 (90 Base) MCG/ACT inhalerIndicati ons:Asthma, unspecified asthma severity, unspecified whether complicated, unspecified whether persistent Inhale 2 puffs every 4 (four) hours if needed for wheezing or shortness of breath. 18 g 1 02/20/20 23 025 Discontinued(R eorder (will not trigger notification to Pharmacy)) levothyroxine (Synthroid, Levoxyl) 50 MCG tabletIndicatio ns:Hypothyroidi sm, unspecified type TAKE ONE TABLET BY MOUTH AT NOON 90 tablet 3 07/04/19 24 025 Discontinued Mometasone Furoate (Asmanex HFA) 200 MCG/ACT aerosol Use inhaler BID 13 g 3 09/21/19 24 025 Discontinued(M ed list cleanup (will not trigger notification to Pharmacy)) Beclomethasone Diprop HFA (Qvar RediHaler) 80 MCG/ACT inhaler Inhale 1 Inhalation. in the morning and at bedtime. Rinse mouth with water after use to reduce aftertaste and incidence of candidiasis. Do not swallow. 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 0 08/11/2022 Encounters Date Type Department Care Team Description 07/15/2024 9:30 AM EST Office Visit [facility] [address] [place] [address] Brianna Corral MD Pneumonia of both lungs due to group B Streptococcus, unspecified part of lung ([facility]) (Primary Dx); Primary hypertension; Arthritis; Bilateral hearing loss, unspecified hearing loss type; Asthma, unspecified asthma severity, unspecified whether complicated, unspecified whether persistent; Other fatigue 07/15/2024 Travel 07/07/2024 Patient Outreach [facility] [address] [place] [id number] Brianna Corral MD Transition Of Care (Tcm) (HDF scheduled) 06/27/2024 Refill [facility] [address] [place] [address] Brianna Corral MD Hypothyroidism, unspecified type 05/29/2024 Telephone [facility] [address] [place] [address] Brianna Corral MD No Show 05/27/[address] [address] Brianna Corral MD FYI; Verbal Order 05/26/2024 Refill [facility] [address] [place] [address] Prem Sauceda MD Constipation, unspecified constipation type 05/19/2024 3:30 PM EST Telemedicine [facility] [address] [place] [address] Edmundo Charles MD Primary hypertension (Primary Dx) 05/19/2024 Telephone [facility] [address] [place] [address] Edmundo Charles MD 05/19/2024 Travel 05/19/[address] [phone] Brianna Corral MD Nurse Triage 05/15/[address] [address] Brianna Corral MD FYI 05/14/2024 Telephone [facility] [address] [place] [address] Brianna Corral MD Medication Question 05/06/2024 Telephone [facility] [address] [place] [address] Brianna Corral MD Request For Order(s) 05/05/2024 1:00 PM EST Office Visit [facility] [address] [place] [address] Joyce Edwards 05/05/2024 Telephone [facility] [address] [place] [address] Brianna Corral MD no show 04/29/2024 1:00 PM EST Office Visit [facility] [address] [place] [address] Joyce Edwards 04/22/2024 Telephone [facility] [address] [place] [address] Brianna Corral MD Care Coordination 04/21/2024 Telephone [facility] [address] [place] [address] Sinai Saucedo, creative guru 04/18/2024 9:00 AM EST Office Visit [facility] [address] [place] [address] Brianna Corral MD Hypertension, unspecified type (Primary Dx); Arthritis; Disorder of thyroid gland; Encounter for immunization 04/18/2024 Travel 2024 Telephone [facility] [address] [place] [address] Brianna Corral MD Chart Prep from Last 3 Months Immunizations Name Administration Dates Next Due Influenza High-dose Quadriva lent Preservative Free 02/22/2023,02/13/2022,03/28/2021,07/16,03/17/2020 Influenza injectable quadriv alent IIV4 with preservative 02/20/2017 Influenza, High Dose Seasona l, Preservative Free 04/18/2024,03/15/2019 Influenza, IIV3, injectable 02/22/2018, 5 Pfizer Covid-19 Vaccine 12+ 04/18/2024 Pneumococcal Conjugate PCV 13 10/29/2015 Pneumococcal Polysaccharide PPSV23 02/20/2017 Tdap 10/29/2015 Zoster, Recombinant 02/20/2019,02/22/2018 Social History Tobacco Use Types Packs/Day Years Used Date Smoking Tobacco: Former Cigarettes Smokeless Tobacco: Never Tobacco Cessation:Counseling Given: Not Answered Alcohol Use Standard Drinks/Week Comments Never 0 [...] Orientation Straight 03/02/2023 2: 51 PM EDT Last Filed Vital Signs Vital Sign Reading Time Taken Comments Blood Pressure 173/83 07/15/2024 9:07 AM EST Pulse 68 07/15/2024 9:07 AM EST Temperature 36.1 ??C (96.9 ??F) 07/15/2024 9:07 AM ES T Respiratory Rate 20 07/15/2024 9:07 AM EST Oxygen Saturation 96% 07/15/2024 9:07 AM EST Inhaled Oxygen Concentration - - Weight 67.6 kg (149 lb) 07/15/2024 9:07 AM EST Height 172.7 cm (5' 8 ) 07/15/2024 9:07 AM EST Body Mass Index 22.66 07/15/2024 9:07 AM EST Plan of Treatment Upcoming Encounters Date Type Department Care Team (Late st Contact Info) Description 07/22/2024 2:00 PM EST Office Visit [facility] [address] [place] [address] Beth Edwardssharita [address] [place] [address] Health Maintenance Due Date Last Done Comments Dental Oral Exam 1947 Dental Prophylaxis 1947 Dental X-Ray: Bitewings 1947 Alcohol/Substance Use Screening 1959 Hepatitis C Screening 1965 Dental X-Ray: Full Mouth 08/02/2018 08/02/2015 RSV Patients and Patients Aged 60 years or older (1 - 1-dose 75+ series) 2022 SDOH Screening 04/25/2024 04/25/2023 COVID-19 Vaccine ( season) 2024 04/18/2024, 2021, 09/14/2020, Additional history exists Depression Screening 09/06/2024 09/07/2023, 09/07/19 24 Tobacco Screening 05/05/2025 05/05/2024 DTaP/Tdap/Td Vaccines (2 - Td or Tdap) 10/28/2025 10/29/2015 Lipid Panel 03/01/2028 03/01/2023, 07/27, 12/19/2021 Pneumococcal Vaccine: 50+ Years Completed 02/20/2017, 10/29/2015 Zoster Vaccines Completed 02/20/2019, 02/22/2018 Influenza Vaccine Completed 04/18/2024, , 02/13/2022, Additional history exists HIB Vaccines Aged Out No longer eligi ble based on patient's age to complete this topic HPV Vaccines Aged Out No longer eligi ble based on patient's age to complete this topic Hepatitis A Vaccines Aged Out No long er eligible based on patient's age to complete this topic Hepatitis B Vaccines Aged Out No long er eligible based on patient's age to complete this topic IPV Vaccines Aged Out No longer eligi ble based on patient's age to complete this topic Meningococcal Vaccine Aged Out No dirk maty eligible based on patient's age to complete this topic RSV under 20 months Aged Out No longe r eligible based on patient's age to complete this topic Rotavirus Vaccines Aged Out No longer eligible based on patient's age to complete this topic Procedures Procedure Name Priority Date/Time Associated Diagnosis Comments DENTURE IMPRESSION Routine 05/05/2024 1: 00 PM EST CONSULTATION - DIAGNOSTIC SERVICE PROVIDED BY DENTIST OR PHYSICIAN OTHER THAN REQUESTING DENTIST OR PHYSICIAN Routine 04/29/2024 1:00 PM EST LIPID PANEL, STANDARD Routine 03/01/2023 11:44 AM EDT Weight loss PANORAMIC RADIOGRAPHIC IMAGE Routine 08/02/2015 12:00 AM EST from Last 3 Months or Most Recently Relevant to Health Maintenance Results * Lipid Panel, Standard (03/01/2023 11:44 AM EDT) Triglycerides 55 <150 mg/dL [facility] Comment:Desirable Triglyceri de: less than 150 mg/dLBorderline High Triglyceride 150-199 mg/dLHigh Triglyceride: 200-499 mg/dLVery High Triglyceride: greater than or equal to 5OO mg/dL Cholesterol 119 <200 mg/dL [facility] Comment:Desirable Cholestero l: less than 200 mg/dLBorderline High Cholesterol: 200-239 mg/dLHigh Cholesterol: greater than 239 mg/dL LDL Cholesterol Calculated 55 <100 mg/dL [facility] Comment:Desirable LDL: less than 100 mg/dLNear Optimal/Above Optimal LDL: 110- 129 mg/dLBorderline High LDL: 130-159 mg/dLHigh LDL: 160-189 mg/dLVery High LDL: greater than or equal to 190 mg/dL HDL Cholesterol 53 >40 mg/dL [facility] Comment:Desirable HDL: great er than 40 mg/dL Note: This HDL assay may give artificially low results in patients with liver disease. Blood Venous blood specimen / Unknown 03/01/2023 11:44 AM EDT 03/01/2023 2:26 PM EDT us Brianna Corral MD LAB BLOOD ORDERABLES Final Resul t [facility] [address] [place] [address] [phone] from Last 3 Months or Most Recently Relevant to Health Maintenance Insurance [facility] Care Teams Ui Lead Developer Relationship Specialty Start Date End Date Brianna Corral MD [address] [place] [phone] PCP - General Family Medicine 10/06/14 [employer] 04/22/24
--- OUTSIDE RECORDS SUMMARY | 2024-07-15 10:14 | XMS_ITS | Encounter Summary ---
Author Organization [employer] Address [address] [place] [address] Care Team Providers Care Drug And Alcohol Counselor Name Role Phone Vickie Claire MD Primary Care Provider + Encounter Details Date Type Department Care Team (Late st Contact Info) Description 06/16/2024 Lab Requisition [facility] [address] [facility] [place] [address] Vickie Claire MD [address] [phone] Pneumonia, unspecified organism; Hyperlipidemia, unspecified Social History [...] Associated Diagnosis Comments COMPLETE BLOOD COUNT Routine 06/17/2024 6:58 AM EST Pneumonia, unspecified organism Hyperlipidemia, unspecified BASIC METABOLIC PANEL Routine 06/17/2024 6:58 AM EST Pneumonia, unspecified organism Hyperlipidemia, unspecified documented in this encounter Results * (ABNORMAL) Basic metabolic panel (06/17/2024 6:58 AM EST) Sodium 135 133 - 145 mmol/L LAB CHEMISTRY METHOD 06/17/2024 10:42 AM EST [facility] Potassium 4.3 3.5 - 5.5 mmol/L LAB CHEMISTRY METHOD 06/17/2024 10:42 AM EST [facility] Chloride 100 96 - 110 mmol/L LAB CHEMISTRY METHOD 06/17/2024 10:42 AM [facility] CO2 30 21 - 32 mmol/L LAB CHEMISTRY METHOD 06/17/2024 10:42 AM [facility] Anion Gap 5 3 - 11 LAB CHEMISTRY METHOD 06/17/2024 10:42 AM [facility] Glucose 89 70 - 100 mg/dL LAB CHEMISTRY METHOD 06/17/2024 10:42 AM [facility] BUN 12 5 - 25 mg/dL LAB CHEMISTRY METHOD 06/17/2024 10:42 AM [facility] Creatinine 0.67(L) 0.70 - 1.30 mg/dL LAB CHEMISTRY METHOD 06/17/2024 10:42 AM [facility] eGFR 96 >=60 mL/min/1. 73m2 LAB CHEMISTRY METHOD 06/17/2024 10:42 AM [facility] Comment:Calculation based on the??Chronic Kidney Disease Epidemiology Collaboration (CKD-EPI) equation refit??without adjustment for race. BUN/Creatinine Ratio 17.9 LAB CHEMISTRY METHOD 06/17/2024 10:42 AM [facility] Calcium 8.6 8.5 - 10.5 mg/dL LAB CHEMISTRY METHOD 06/17/2024 10:42 AM [facility] Blood Venous blood specimen / Unknown Venipuncture / Unknown 06/17/2024 6:58 AM EST 06/17/2024 8:59 AM EST us Vickie Claire MD LAB BLOOD ORDERABLES Fin al Result [facility] [address] [place] [address], * (ABNORMAL) Complete blood count (06/17/2024 6:58 AM EST) WBC 6.4 4.8 - 10.8 K/mcL LAB HEMETOLOGY METHOD 06/17/2024 10:09 AM [facility] RBC 4.00(L) 4.50 - 5.50 M/[facility] LAB HEMETOLOGY METHOD 06/17/2024 10:09 AM [facility] Hemoglobin 11.1(L) 13.5 - 17.5 g/dL LAB HEMETOLOGY METHOD 06/17/2024 10:09 AM [facility] Hematocrit 36.1(L) 42.0 - 54.0 % LAB HEMETOLOGY METHOD 06/17/2024 10:09 AM [facility] MCV 90.3 79.0 - 98.0 FL LAB HEMETOLOGY METHOD 06/17/2024 10:09 AM [facility] MCH 27.8 27.0 - 32.0 pcg LAB HEMETOLOGY METHOD 06/17/2024 10:09 AM [facility] MCHC 30.7(L) 32.0 - 37.0 g/dL LAB HEMETOLOGY METHOD 06/17/2024 10:09 AM [facility] RDW 16.2(H) 11.0 - 15.0 % LAB HEMETOLOGY METHOD 06/17/2024 10:09 AM [facility] Platelets 543(H) 130 - 400 K/mcL LAB HEMETOLOGY METHOD 06/17/2024 10:09 AM [facility] MPV 9.2 7.0 - 11.0 FL LAB HEMETOLOGY METHOD 06/17/2024 10:09 AM [facility] NRBC 0.0 <1.0 % LAB HEMETOLOGY METHOD 06/17/2024 10:09 AM [facility] NRBC Absolute 0.00 <0.10 K/mcL LAB HEMETOLOGY METHOD 06/17/2024 10:09 AM [facility] Blood Venous blood specimen / Unknown Venipuncture / Unknown 06/17/2024 6:58 AM EST 06/17/2024 8:59 AM EST us Vickie Claire MD LAB BLOOD ORDERABLES Fin al Result [facility] [address] [place] [address], documented in this encounter Visit Diagnoses Diagnosis Pneumonia, unspecified organism Hyperlipidemia, unspecified documented in this encounter Care Teams Drug And Alcohol Counselor Relationship Specialty Start Date End Date Vickie Claire MD [address] [place] [phone] PCP - General Family Medicine 06/05/24 documented as of this encounter
--- OUTSIDE RECORDS SUMMARY | 2024-07-15 10:14 | XMS_ITS | Encounter Summary ---
Author Organization [employer] Address [address] [place] [address] Care Team Providers Care Dry Chain Operator Name Role Phone Vickie Claire MD Primary Care Provider + Encounter Details Date Type Department Care Team (Late st Contact Info) Description 07/07/2024 Lab Requisition [facility] [address] [facility] [place] [address] Vickie Claire MD [address] [address] Hyperlipidemia, unspecified; Pneumonia, unspecified organism Social History Tobacco Use [...] Associated Diagnosis Comments COMPLETE BLOOD COUNT Routine 07/08/2024 5:31 AM EST Hyperlipidemia, unspecified Pneumonia, unspecified organism BASIC METABOLIC PANEL Routine 07/08/2024 5:31 AM EST Hyperlipidemia, unspecified Pneumonia, unspecified organism documented in this encounter Results * (ABNORMAL) Basic metabolic panel (07/08/2024 5:31 AM EST) Sodium 135 133 - 145 mmol/L LAB CHEMISTRY METHOD 07/08/2024 11:54 AM EST [facility] Potassium 4.2 3.5 - 5.5 mmol/L LAB CHEMISTRY METHOD 07/08/2024 11:54 AM EST [facility] Chloride 98 96 - 110 mmol/L LAB CHEMISTRY METHOD 07/08/2024 11:54 AM [facility] CO2 32 21 - 32 mmol/L LAB CHEMISTRY METHOD 07/08/2024 11:54 AM [facility] Anion Gap 5 3 - 11 LAB CHEMISTRY METHOD 07/08/2024 11:54 AM [facility] Glucose 87 70 - 100 mg/dL LAB CHEMISTRY METHOD 07/08/2024 11:54 AM [facility] BUN 12 5 - 25 mg/dL LAB CHEMISTRY METHOD 07/08/2024 11:54 AM [facility] Creatinine 0.64(L) 0.70 - 1.30 mg/dL LAB CHEMISTRY METHOD 07/08/2024 11:54 AM [facility] eGFR 98 >=60 mL/min/1. 73m2 LAB CHEMISTRY METHOD 07/08/2024 11:54 AM [facility] Comment:Calculation based on the??Chronic Kidney Disease Epidemiology Collaboration (CKD-EPI) equation refit??without adjustment for race. BUN/Creatinine Ratio 18.8 LAB CHEMISTRY METHOD 07/08/2024 11:54 AM [facility] Calcium 8.8 8.5 - 10.5 mg/dL LAB CHEMISTRY METHOD 07/08/2024 11:54 AM [facility] Blood Venous blood specimen / Unknown Venipuncture / Unknown 07/08/2024 5:31 AM EST 07/08/2024 11:13 AM EST us Vickie Claire MD LAB BLOOD ORDERABLES Fin al Result [facility] [address] [place] [address], * (ABNORMAL) Complete blood count (07/08/2024 5:31 AM EST) WBC 9.9 4.8 - 10.8 K/mcL LAB HEMETOLOGY METHOD 07/08/2024 11:25 AM [facility] RBC 4.00(L) 4.50 - 5.50 M/[facility] LAB HEMETOLOGY METHOD 07/08/2024 11:25 AM [facility] Hemoglobin 11.3(L) 13.5 - 17.5 g/dL LAB HEMETOLOGY METHOD 07/08/2024 11:25 AM [facility] Hematocrit 36.3(L) 42.0 - 54.0 % LAB HEMETOLOGY METHOD 07/08/2024 11:25 AM [facility] MCV 91.2 79.0 - 98.0 FL LAB HEMETOLOGY METHOD 07/08/2024 11:25 AM [facility] MCH 28.4 27.0 - 32.0 pcg LAB HEMETOLOGY METHOD 07/08/2024 11:25 AM [facility] MCHC 31.1(L) 32.0 - 37.0 g/dL LAB HEMETOLOGY METHOD 07/08/2024 11:25 AM [facility] RDW 16.0(H) 11.0 - 15.0 % LAB HEMETOLOGY METHOD 07/08/2024 11:25 AM [facility] Platelets 326 130 - 400 K/mcL LAB HEMETOLOGY METHOD 07/08/2024 11:25 AM [facility] MPV 9.7 7.0 - 11.0 FL LAB HEMETOLOGY METHOD 07/08/2024 11:25 AM [facility] NRBC 0.0 <1.0 % LAB HEMETOLOGY METHOD 07/08/2024 11:25 AM [facility] NRBC Absolute 0.00 <0.10 K/mcL LAB HEMETOLOGY METHOD 07/08/2024 11:25 AM [facility] Blood Venous blood specimen / Unknown Venipuncture / Unknown 07/08/2024 5:31 AM EST 07/08/2024 11:12 AM EST Vickie Claire MD LAB BLOOD ORDERABLES Fin al Result Performing Organization Address City/State/[facility] Co de Phone Number [facility] [address] [place] [address], documented in this encounter Visit Diagnoses Diagnosis Hyperlipidemia, unspecified Pneumonia, unspecified organism documented in this encounter Care Teams Dry Chain Operator Relationship Specialty Start Date End Date Vickie Claire MD [address] [phone] PCP - General Family Medicine 06/05/24 documented as of this encounter
--- OUTSIDE RECORDS SUMMARY | 2024-07-15 10:14 | XMS_ITS ---
Author Name ARINAFidel ROSIE, RN, RD, [place] Address [address] [place] [address] Phone [phone] [facility] Care Team Providers Care Gas Appliance Mechanic Name Role Phone ROSINA LIRA Unavailable [phone] Reason for Referral Not Available Allergies, adverse reactions, alerts No known allergies History of medication use Medication Class Instructions Start Date End Date Aspirin Low Dose 81 mg Tab delayed rel TAKE ONE TABLET BY MOUTH EVERY MORNING 2021-09-07 No Data Available Clopidogrel Bisulfate 75 mg Tab TAKE ONE TABLET EVERY MORNING 2021-09-07 No Data Available Nitroglycerin 0.[address] 1 TABLET UNDER TONGUE EVERY 5 MIN NEEDED FOR CHEST PAIN, MAX OF 3 DOSES/15 MIN CALL 911/SEEK MEDICAL ATTENTION IF PAIN PERSISTS 2021-09-07 No Data Available Carvedilol 12.5 mg Tab TAKE ONE TABLET I N THE MORNING AND EVENING WITH FOOD 2020-09-30 No Data Available Docusate Sodium 100 mg Cap TAKE ONE CAPS ULE IN THE MORNING AND EVENING 2021-06-14 No Data Available Finasteride 5 mg Tab TAKE ONE TABLET ALEXIS RY MORNING 2021-01-12 No Data Available levETIRAcetam 500 mg Tab TAKE ONE TABLET IN THE MORNING AND EVENING 2021-06-15 No Data Available Lisinopril 40 mg Tab TAKE ONE TABLET ALEXIS RY MORNING 2020-09-30 No Data Available Rosuvastatin Calcium 40 mg Tab TAKE ONE TABLET EVERY EVENING 2021-08-16 No Data Available Tamsulosin 0.4 mg Cap TAKE ONE CAPSULE E VERY MORNING 2021-06-21 No Data Available Albuterol Sulfate HFA 108 (9 0 Base) MCG/ACT Aerosol Solution INHALE TWO PUFFS FOUR TIMES DAILY 2021-09-21 No Data Available Fluticasone Propionate 50 MCG/ACT Suspension INHALE 1 - 2 SPRAYS IN EACH NOSTRIL ONCE DAILY NEEDED 2021-09-21 No Data Available amLODIPine Besylate 10 mg Tab TAKE ONE T ABLET EVERY MORNING 2021-04-18 No Data Available Levothyroxine Sodium 50 MCG Tab TAKE ONE TABLET AT NOON 2021-04-19 No Data Availabl e Pantoprazole Sodium 20 mg Ta b delayed rel TAKE ONE TABLET EVERY MORNING 2021-09-23 No Data Available Timolol Maleate 0.25 % Solution PLACE ONE DROP IN EACH EYE TWICE DAILY 2021-01-24 No Data Available Sodium Chloride 1 GM Tab TAKE ONE TABLET BY MOUTH DAILY FOR FOUR DAYS 2021-12-21 No Data Available Cefpodoxime Proxetil 200 mg Tab TAKE 1 TABLET BY MOUTH EVERY 12 HOURS FOR 10 DAYS 2022-02-07 No Data Available Sulfamethoxazole-Trimethopri m 800/160 mg Tab TAKE ONE TABLET BY MOUTH EVERY TWELVE HOURS UNTIL FINISHED 2022-02-13 No Data Available Problem List Problem Status Onset Date Resolved Date Hypertensive heart disease with heart failure Active 2022-03-03 N/A 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
--- OUTSIDE RECORDS SUMMARY | 2024-07-15 10:14 | XMS_ITS | Encounter Summary ---
Author Organization [employer] Address [address] [facility] [address] [place] [address] Care Team Providers Care Executive Compensation Analyst Name Role Phone Brianna Corral MD Primary Care Provider [phone] Reason for Referral * Consultation (Routine) - Pending Review Specialty Diagnoses / Procedures Referred By Duane macias Referred To Contact Audiology Diagnoses Bilateral hearing loss, unspecified hearing loss type Brianna Corral MD [address] [place] [address] Phone: tel: fax: Referral ID Status Reason Start Date Expiration Date Visits Requested Visits Authorized [id number] Pending Review Specialty Services Required 07/15/2024 07/15/2025 1 1 Encounter Details Date Type Department Care Team (Late st Contact Info) Description 07/15/2024 9:30 AM EST Office Visit [facility] [address] [place] [address] Brianna Corral MD [address] [place] [address] Pneumonia of both lungs due to group B Streptococcus, unspecified part of lung (CMS/HCC) (Primary Dx); Primary hypertension; Arthritis; Bilateral hearing loss, unspecified hearing loss type; Asthma, unspecified asthma severity, unspecified whether complicated, unspecified whether persistent; Other fatigue Social History Tobacco Use Types Packs/Day Years [...] PM EDT documented as of this encounter Last Filed Vital Signs Vital Sign Reading [...] Mass Index 22.66 07/15/2024 9:07 AM EST documented in this encounter Plan of Treatment Upcoming Encounters Date Type Department Care Team (Late st Contact Info) Description 07/22/2024 2:00 PM EST Office Visit [facility] AD[facility] [address] [place] [address] Joyce Edwards [address] [place] [address] Scheduled Orders Name Type Priority Associated Diagnoses Orde r Schedule Basic Metabolic Panel Lab Routine Primary hypertension Expected: 07/15/2024 (Approximate), Expires: 07/15/2025 Lipid Panel, Standard Lab Routine Primary hypertension Expected: 07/15/2024 (Approximate), Expires: 07/15/2025 Hepatic Function Panel Lab Routine Primary hypertension Expected: 07/15/2024 (Approximate), Expires: 07/15/2025 Scheduled Referrals Name Type Priority Associated Diagnoses Orde r Schedule Referral to Audiology Outpatient Referral Routine Bilateral hearing loss, unspecified hearing loss type Expected: 07/15/2024 (Approximate), Expires: 07/15/2025 documented as of this encounter Visit Diagnoses Diagnosis Pneumonia of both lungs due to group B Streptococcus, unspecified part of lung (CMS/[facility])- Primary Primary hypertension Unspecified essential hypertension Arthritis Unspecified arthropathy, site unspecified Bilateral hearing loss, unspecified hearing loss type Asthma, unspecified asthma severity, unspecified whether complicated, unspecified whether persistent Other fatigue documented in this encounter Additional Health Concerns Assessment Noted Time PHQ-9 Depression Total Score: 4 09/07/19 24 9:31 AM EDT documented as of this encounter Care Teams Executive Compensation Analyst Relationship Specialty Start Date End Date Brianna Corral MD [address] [place] [address] PCP - General Family Medicine 10/06/14 [employer] 04/22/24 documented as of this encounter
--- OUTSIDE RECORDS SUMMARY | 2024-07-15 10:14 | XMS_ITS | Encounter Summary ---
Author Organization [employer] Address [address] [place] [address] Care Team Providers Care Manager Parking Name Role Phone Vickie Claire MD Primary Care Provider + Encounter Details Date Type Department Care Team (Late st Contact Info) Description 06/30/2024 Lab Requisition [facility] - Main Lab [address] [facility] [place] [address] Vickie Claire MD [address] [id number] Pneumonia, unspecified organism; Hyperlipidemia, unspecified Social History [...] Associated Diagnosis Comments COMPLETE BLOOD COUNT Routine 07/01/2024 6:58 AM EST Pneumonia, unspecified organism Hyperlipidemia, unspecified BASIC METABOLIC PANEL Routine 07/01/2024 6:58 AM EST Pneumonia, unspecified organism Hyperlipidemia, unspecified documented in this encounter Results * (ABNORMAL) Basic metabolic panel (07/01/2024 6:58 AM EST) Sodium 135 133 - 145 mmol/L LAB CHEMISTRY METHOD 07/01/2024 9:48 AM EST [facility] Potassium 4.1 3.5 - 5.5 mmol/L LAB CHEMISTRY METHOD 07/01/2024 9:48 AM EST [facility] Chloride 101 96 - 110 mmol/L LAB CHEMISTRY METHOD 07/01/2024 9:48 AM [facility] CO2 30 21 - 32 mmol/L LAB CHEMISTRY METHOD 07/01/2024 9:48 AM [facility] Anion Gap 4 3 - 11 LAB CHEMISTRY METHOD 07/01/2024 9:48 AM [facility] Glucose 80 70 - 100 mg/dL LAB CHEMISTRY METHOD 07/01/2024 9:48 AM [facility] BUN 13 5 - 25 mg/dL LAB CHEMISTRY METHOD 07/01/2024 9:48 AM [facility] Creatinine 0.57(L) 0.70 - 1.30 mg/dL LAB CHEMISTRY METHOD 07/01/2024 9:48 AM [facility] eGFR 101 >=60 mL/min/1. 73m2 LAB CHEMISTRY METHOD 07/01/2024 9:48 AM [facility] Comment:Calculation based on the??Chronic Kidney Disease Epidemiology Collaboration (CKD-EPI) equation refit??without adjustment for race. BUN/Creatinine Ratio 22.8 LAB CHEMISTRY METHOD 07/01/2024 9:48 AM [facility] Calcium 8.7 8.5 - 10.5 mg/dL LAB CHEMISTRY METHOD 07/01/2024 9:48 AM [facility] Blood Venous blood specimen / Unknown Venipuncture / Unknown 07/01/2024 6:58 AM EST 07/01/2024 8:29 AM EST us Vickie Claire MD LAB BLOOD ORDERABLES Fin al Result [facility] [address] [place] [address], * (ABNORMAL) Complete blood count (07/01/2024 6:58 AM EST) WBC 10.0 4.8 - 10.8 K/mcL LAB HEMETOLOGY METHOD 07/01/2024 9:25 AM [facility] RBC 4.00(L) 4.50 - 5.50 M/[facility] LAB HEMETOLOGY METHOD 07/01/2024 9:25 AM [facility] Hemoglobin 11.2(L) 13.5 - 17.5 g/dL LAB HEMETOLOGY METHOD 07/01/2024 9:25 AM [facility] Hematocrit 35.7(L) 42.0 - 54.0 % LAB HEMETOLOGY METHOD 07/01/2024 9:25 AM [facility] MCV 89.3 79.0 - 98.0 FL LAB HEMETOLOGY METHOD 07/01/2024 9:25 AM [facility] MCH 28.0 27.0 - 32.0 pcg LAB HEMETOLOGY METHOD 07/01/2024 9:25 AM [facility] MCHC 31.4(L) 32.0 - 37.0 g/dL LAB HEMETOLOGY METHOD 07/01/2024 9:25 AM [facility] RDW 16.1(H) 11.0 - 15.0 % LAB HEMETOLOGY METHOD 07/01/2024 9:25 AM [facility] Platelets 292 130 - 400 K/mcL LAB HEMETOLOGY METHOD 07/01/2024 9:25 AM [facility] MPV 9.3 7.0 - 11.0 FL LAB HEMETOLOGY METHOD 07/01/2024 9:25 AM [facility] NRBC 0.0 <1.0 % LAB HEMETOLOGY METHOD 07/01/2024 9:25 AM [facility] NRBC Absolute 0.00 <0.10 K/mcL LAB HEMETOLOGY METHOD 07/01/2024 9:25 AM [facility] Blood Venous blood specimen / Unknown Venipuncture / Unknown 07/01/2024 6:58 AM EST 07/01/2024 8:29 AM EST Vickie Claire MD LAB BLOOD ORDERABLES Fin al Result Performing Organization Address City/State/[facility] Co de Phone Number [facility] [address] [place] [address], documented in this encounter Visit Diagnoses Diagnosis Pneumonia, unspecified organism Hyperlipidemia, unspecified documented in this encounter Care Teams Manager Parking Relationship Specialty Start Date End Date Vickie Claire MD [address] [address] PCP - General Family Medicine 06/05/24 documented as of this encounter
--- OUTSIDE RECORDS SUMMARY | 2024-07-15 10:14 | XMS_ITS | Encounter Summary ---
Author Organization [employer] Address [address] [place] [address] 7t [place] [address] Care Team Providers Care Retail Mortgage Banker Name Role Phone Brianna Corral MD Primary Care Provider [phone] Encounter Details Date Type Department Care Team (Late Contact Info) Description 03/02/2023 [facility] Health Information Management [address] [place] [address] Brianna Corral MD [address] [place], [place] [phone] Social History Tobacco Use Types Packs/Day Years [...] 2:00 PM EST Office Visit [facility] [address] [place], [place] [phone] Joyce Edwards [address] [place], [place] [phone] documented as of this encounter Visit Diagnoses Not on filedocumented in this encounter Care Teams Retail Mortgage Banker Relationship Specialty Start Date End Date Brianna Corral MD [address] [place], [place] [phone] PCP - General Family Medicine 10/06/14 [employer] 04/22/24 documented as of this encounter
--- OUTSIDE RECORDS SUMMARY | 2024-07-15 10:14 | XMS_ITS | Encounter Summary ---
Author Organization [employer] Address [address] [place] [address] Care Team Providers Care Leather Goods Sales Representative Name Role Phone Vickie Claire MD Primary Care Provider + Encounter Details Date Type Department Care Team (Late st Contact Info) Description 06/23/[address] [facility] - Main Lab [address] [facility] [place] [address] Vickie Claire MD [address] [phone] Pneumonia, unspecified organism; Hyperlipidemia, unspecified Social History [...] Associated Diagnosis Comments COMPLETE BLOOD COUNT Routine 06/24/2024 6:48 AM EST Pneumonia, unspecified organism Hyperlipidemia, unspecified BASIC METABOLIC PANEL Routine 06/24/2024 6:48 AM EST Pneumonia, unspecified organism Hyperlipidemia, unspecified documented in this encounter Results * (ABNORMAL) Basic metabolic panel (06/24/2024 6:48 AM EST) Sodium 136 133 - 145 mmol/L LAB CHEMISTRY METHOD 06/24/2024 9:17 AM EST [facility] Potassium 4.0 3.5 - 5.5 mmol/L LAB CHEMISTRY METHOD 06/24/2024 9:17 AM EST [facility] Chloride 100 96 - 110 mmol/L LAB CHEMISTRY METHOD 06/24/2024 9:17 AM [facility] CO2 32 21 - 32 mmol/L LAB CHEMISTRY METHOD 06/24/2024 9:17 AM [facility] Anion Gap 4 3 - 11 LAB CHEMISTRY METHOD 06/24/2024 9:17 AM [facility] Glucose 89 70 - 100 mg/dL LAB CHEMISTRY METHOD 06/24/2024 9:17 AM [facility] BUN 10 5 - 25 mg/dL LAB CHEMISTRY METHOD 06/24/2024 9:17 AM [facility] Creatinine 0.65(L) 0.70 - 1.30 mg/dL LAB CHEMISTRY METHOD 06/24/2024 9:17 AM [facility] eGFR 97 >=60 mL/min/1. 73m2 LAB CHEMISTRY METHOD 06/24/2024 9:17 AM [facility] Comment:Calculation based on the??Chronic Kidney Disease Epidemiology Collaboration (CKD-EPI) equation refit??without adjustment for race. BUN/Creatinine Ratio 15.4 LAB CHEMISTRY METHOD 06/24/2024 9:17 AM [facility] Calcium 8.8 8.5 - 10.5 mg/dL LAB CHEMISTRY METHOD 06/24/2024 9:17 AM [facility] Blood Venous blood specimen / Unknown Venipuncture / Unknown 06/24/2024 6:48 AM EST 06/24/2024 8:29 AM EST us Vickie Claire MD LAB BLOOD ORDERABLES Fin al Result [facility] [address] [place] [address], * (ABNORMAL) Complete blood count (06/24/2024 6:48 AM EST) WBC 5.2 4.8 - 10.8 K/mcL LAB HEMETOLOGY METHOD 06/24/2024 8:51 AM [facility] RBC 4.10(L) 4.50 - 5.50 M/[facility] LAB HEMETOLOGY METHOD 06/24/2024 8:51 AM [facility] Hemoglobin 11.6(L) 13.5 - 17.5 g/dL LAB HEMETOLOGY METHOD 06/24/2024 8:51 AM [facility] Hematocrit 37.3(L) 42.0 - 54.0 % LAB HEMETOLOGY METHOD 06/24/2024 8:51 AM [facility] MCV 90.3 79.0 - 98.0 FL LAB HEMETOLOGY METHOD 06/24/2024 8:51 AM [facility] MCH 28.1 27.0 - 32.0 pcg LAB HEMETOLOGY METHOD 06/24/2024 8:51 AM [facility] MCHC 31.1(L) 32.0 - 37.0 g/dL LAB HEMETOLOGY METHOD 06/24/2024 8:51 AM [facility] RDW 16.1(H) 11.0 - 15.0 % LAB HEMETOLOGY METHOD 06/24/2024 8:51 AM [facility] Platelets 403(H) 130 - 400 K/mcL LAB HEMETOLOGY METHOD 06/24/2024 8:51 AM [facility] MPV 9.3 7.0 - 11.0 FL LAB HEMETOLOGY METHOD 06/24/2024 8:51 AM [facility] NRBC 0.0 <1.0 % LAB HEMETOLOGY METHOD 06/24/2024 8:51 AM [facility] NRBC Absolute 0.00 <0.10 K/mcL LAB HEMETOLOGY METHOD 06/24/2024 8:51 AM [facility] Blood Venous blood specimen / Unknown Venipuncture / Unknown 06/24/2024 6:48 AM EST 06/24/2024 8:29 AM EST us Vickie Claire MD LAB BLOOD ORDERABLES Fin al Result [facility] ([facility]) [facility] [address] [place] [address], documented in this encounter Visit Diagnoses Diagnosis Pneumonia, unspecified organism Hyperlipidemia, unspecified documented in this encounter Care Teams Leather Goods Sales Representative Relationship Specialty Start Date End Date Vickie Claire MD [address] [place] [address] PCP - General Family Medicine 06/05/24 documented as of this encounter
--- OUTSIDE RECORDS SUMMARY | 2024-07-15 10:14 | XMS_ITS ---
Author Organization [facility] Address [address] [place] [address] Care Team Providers Care Medical Resident Name Role Phone YAQUELIN PONCHO Primary Care Provider Unavaildagoberto e Jean Marie Sequeira Unavailable [phone] Nurys Landeros Unavailable Unavailable REASON FOR VISIT Patient presents today for wt loss Encounters Encounter Location Date Provider Diagnosis [facility] [address] [place] [address] 12/11/2023 Jean Marie Sequeira PLAN OF TREATMENT No Information
--- OUTSIDE RECORDS SUMMARY | 2024-07-15 10:14 | XMS_ITS | Encounter Summary ---
Author Organization [employer] Address [address] [facility] [address] [place] [address] Care Team Providers Care Reinforced Concrete Inspector Name Role Phone Brianna Corral MD Primary Care Provider [phone] Encounter Details Date Type Department Care Team (Late st Contact Info) Description 08/10/2023 Telephone [facility] [address] [place] [address] Brianna Corral MD [address] [place], [place] [phone] Social History Tobacco Use Types Packs/Day Years [...] encounter Miscellaneous Notes * Telephone Encounter - Nathan Edmondson RN - 08/10/2023 3:00 PM EDT Please see FYI below. * Telephone Encounter - Rosalee Steve - 08/10/2023 2:55 PM EDT Tc from [facility] calling to inform PCP pt get eval today for OT. Any questions contact at [phone] documented in this encounter Plan of Treatment Upcoming Encounters Date Type Department Care Team (Late st Contact Info) Description 07/22/2024 2:00 PM EST Office Visit [facility] [address] [place] [address] Arjun Edwardskevensamuel [address] [place] [address] documented as of this encounter Visit Diagnoses Not on filedocumented in this encounter Care Teams Reinforced Concrete Inspector Relationship Specialty Start Date End Date Brianna Corral MD [address] [place] [address] PCP - General Family Medicine 10/06/14 [facility] 04/22/24 documented as of this encounter
--- OUTSIDE RECORDS SUMMARY | 2024-07-15 10:14 | XMS_ITS | Encounter Summary ---
Author Organization [employer] Address [address] [place] [address] Care Team Providers Care Retail Manager In Training Name Role Phone Vickie Claire MD Primary Care Provider + Encounter Details Date Type Department Care Team (Late st Contact Info) Description 07/14/2024 Lab Requisition [facility] - Main Lab [address] [facility] [place] [address] Vickie Claire MD [address] [address] Hyperlipidemia, unspecified; Pneumonia, unspecified organism Social History Tobacco Use Types Packs/Day Years Used Date Smoking Tobacco: Never Assessed Sex and Gender Information Value Date Recorded Sex Assigned at Not on file Legal Sex Male 10:09 PM EST Gender Identity Not on file Sexual Orientation Not on file documented as of this encounter Plan of Treatment Not on file documented as of this encounter Visit Diagnoses Diagnosis Hyperlipidemia, unspecified Pneumonia, unspecified organism documented in this encounter Care Teams Retail Manager In Training Relationship Specialty Start Date End Date Vickie Claire MD [address] [place] [phone] PCP - General Family Medicine 06/05/24 documented as of this encounter
--- OUTSIDE RECORDS SUMMARY | 2024-07-15 10:14 | XMS_ITS | Encounter Summary ---
Author Organization [employer] Address [address] [facility] 7t [place] [address] Care Team Providers Care Freight Separator Name Role Phone Brianna Corral MD Primary Care Provider [phone] Encounter Details Date Type Department Care Team (Latest Contact Info) Description 07/15/2024 Travel Social History Tobacco Use Types Packs/Day Years [...] Description 07/22/2024 2:00 PM EST Office Visit [facility] AD[facility] [address] [place] [address] Beth Edwardssharita [address] [place] [address] documented as of this encounter Visit Diagnoses Not on filedocumented in this encounter Additional Health Concerns Assessment Noted Time PHQ-9 Depression Total Score: 4 09/07/19 24 9:31 AM EDT documented as of this encounter Care Teams Freight Separator Relationship Specialty Start Date End Date Brianna Corral MD [address] [place] [address] PCP - General Family Medicine 10/06/14 [employer] 04/22/24 documented as of this encounter
--- OUTSIDE RECORDS SUMMARY | 2024-07-15 10:14 | XMS_ITS | Clinical Summary ---
Author Organization [facility] Address [address] [place] [address] Care Team Providers Care Customs Compliance Manager Name Role Phone Brianna Corral MD Primary Care Provider [phone] Allergies Active Allergy Reactions Criticality Noted Date Comments Adhesive Tape Rash Low 03/22/2022 Medications Aspirin Low Dose 81 MG EC tablet Take 81 mg by mouth every morning 2 Active carvedilol (COREG) 12.5 MG tablet Take 12.5 mg by mouth in the morning and 12.5 mg in the evening. 7 Active tamsulosin (FLOMAX) 0.4 MG 24 hr capsule Take 0.4 mg by mouth every morning 2 Active levETIRAcetam (KEPPRA) 500 MG tablet Take 500 mg by mouth in the morning and 500 mg in the evening. 1 Active levothyroxine (SYNTHROID, LEVOTHROID) 50 MCG tablet Take 50 mcg by mouth 1 (one) time each day 2 Active lisinopril 40 MG tablet Take 40 mg by mouth every morning 2 Active rosuvastatin (CRESTOR) 40 MG tablet Take 40 mg by mouth 1 (one) time each day in the evening 2 Active timolol (TIMOPTIC) 0.25 % ophthalmic solution Administer 1 drop into both eyes 2 (two) times a day 2 Active pantoprazole (PROTONIX) 20 MG EC tablet Take 20 mg by mouth every morning 2 Active finasteride (PROSCAR) 5 MG tablet Take 5 mg by mouth every morning 2 Active docusate sodium (COLACE) 100 MG capsule Take 100 mg by mouth 1 (one) time each day 2 Active clopidogrel (PLAVIX) 75 MG tablet Take 75 mg by mouth every morning 2 Active albuterol HFA (PROVENTIL HFA;VENTOLIN HFA) 108 (90 Base) MCG/ACT inhaler Inhale 2 puffs 4 times a day 2 Active Active Problems Problem Noted Date Diagnosed Date 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 Hypertension 03/22/2022 Hyponatremia 03/22/2022 Benign prostatic hyperplasia 03/22/2022 Atherosclerotic heart diseas e of [place] coronary artery without angina pectoris, not otherwise specified 03/22/2022 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 Myocardial infarction 08/19/2013 Social History Tobacco Use Types Packs/Day Years Used Date Smoking Tobacco: Former Cigarettes Q uit: 05/28/1998 Tobacco Cessation:Counseling Given: Not Answered Comments Unknown Sex and Gender Information Value Date Recorded Sex Assigned at Not on file Legal Sex Female 11:20 AM EDT Gender Identity Transgender Male 01/03/2022 11:4 3 AM EDT Sexual Orientation Not on file Plan of Treatment Health Maintenance Due Date Last Done Comments Pneumococcal Vaccine: 65+ Ye ars (1 of 2 - PCV) 1951 Influenza Vaccine (#1) 2024 Hepatitis B Vaccine Aged Out No longe r eligible based on patient's age to complete this topic Insurance Care Teams Customs Compliance Manager Relationship Specialty Start Date End Date Brianna Corral MD [address] [place] [address] PCP - General Family Medicine 01/03/22
--- OUTSIDE RECORDS SUMMARY | 2024-07-15 10:15 | XMS_ITS | Clinical Summary ---
Author Organization [address] Address [address] [place] [address] Phone Care Team Providers Care Circus Hand Name Role Phone Vickie Claire MD Primary Care Provider + Encounters Date Type Department Care Team Description 07/14/2024 Lab Requisition [facility] Lab [address] [place] [address] Vickie Claire MD Hyperlipidemia, unspecified; Pneumonia, unspecified organism 07/07/2024 Lab Requisition [facility] Lab [address] [place] [address] Vickie Claire MD Hyperlipidemia, unspecified; Pneumonia, unspecified organism 06/30/2024 Lab Requisition [facility] [address] [place] [address] Vickie Claire MD Pneumonia, unspecified organism; Hyperlipidemia, unspecified 06/23/2024 Lab Requisition [facility] Lab [address] [place] [address] Vickie Claire MD Pneumonia, unspecified organism; Hyperlipidemia, unspecified 06/16/2024 Lab Requisition [facility] - Main Lab [address] [place] [address] Vickie Claire MD Pneumonia, unspecified organism; Hyperlipidemia, unspecified 06/09/2024 Lab Requisition [facility] Main Lab [address] [place] [address] Vickie Claire MD Pneumonia, unspecified organism; Hyperlipidemia, unspecified 06/05/2024 Lab Requisition [facility] Main Lab [address] [facility] [place] [address] Vickie Claire MD Essential (primary) hypertension; Pneumonia, unspecified organism from Last 3 Months Social History Tobacco Use Types Packs/Day Years Used Date Smoking Tobacco: Never Assessed Sex and Gender Information Value Date Recorded Sex Assigned at Not on file Legal Sex Male 10:09 PM EST Gender Identity Not on file Sexual Orientation Not on file Plan of Treatment Health Maintenance Due Date Last Done Comments DTaP,Tdap,and Td Vaccines (1 - Tdap) 1966 Pneumococcal Vaccine: 50+ Years (1 of 1 - PCV) 1997 Zoster Vaccines (1 of 2) 1997 RSV Immunization Patients 60+ Years Old (1 - 1-dose 75+ series) 2022 Cholesterol Screening (Lipid Panel) 04/29/2022 Depression Screening 04/29/2022 Falls Risk Assessment 04/29/2022 Hepatitis C Screening 04/29/2022 Social Influencers of Health Screening 04/29/2022 COVID-19 Vaccine ( - 2023- season) 2024 Influenza Vaccine (#1) 2024 Hypertension/CHF/CAD Annual BMP Blood Test 07/08/2025 07/08/2024, 07/01/2024, 06/24/2024, Additional history exists HIB Vaccines Aged Out [...] on patient's age to complete this topic MMR Vaccines Aged Out No longer eligi ble based on patient's age to complete this topic Meningococcal ACWY Vaccine Aged Out N o longer eligible based on patient's age to complete this topic Meningococcal B Vacine Aged Out No lo nger eligible based on patient's age to complete this topic RSV Immunization Patients Under 20 months Aged Out No longer eligible based on patient's age to complete this topic Varicella Vaccines Aged Out No longer eligible based on patient's age to complete this topic Procedures Procedure Name Priority Date/Time Associated Diagnosis Comments BASIC METABOLIC PANEL Routine 07/08/2024 5:31 AM EST Hyperlipidemia, unspecified Pneumonia, unspecified organism COMPLETE BLOOD COUNT Routine 07/08/2024 5:31 AM EST Hyperlipidemia, unspecified Pneumonia, unspecified organism BASIC METABOLIC PANEL Routine 07/01/2024 6:58 AM EST Pneumonia, unspecified organism Hyperlipidemia, unspecified COMPLETE BLOOD COUNT Routine 07/01/2024 6:58 AM EST Pneumonia, unspecified organism Hyperlipidemia, unspecified BASIC METABOLIC PANEL Routine 06/24/2024 6:48 AM EST Pneumonia, unspecified organism Hyperlipidemia, unspecified COMPLETE BLOOD COUNT Routine 06/24/2024 6:48 AM EST Pneumonia, unspecified organism Hyperlipidemia, unspecified BASIC METABOLIC PANEL Routine 06/17/2024 6:58 AM EST Pneumonia, unspecified organism Hyperlipidemia, unspecified COMPLETE BLOOD COUNT Routine 06/17/2024 6:58 AM EST Pneumonia, unspecified organism Hyperlipidemia, unspecified BASIC METABOLIC PANEL Routine 06/10/2024 6:48 AM EST Pneumonia, unspecified organism Hyperlipidemia, unspecified COMPLETE BLOOD COUNT Routine 06/10/2024 6:48 AM EST Pneumonia, unspecified organism Hyperlipidemia, unspecified BASIC METABOLIC PANEL Routine 06/05/2024 9:58 AM EST Essential (primary) hypertension Pneumonia, unspecified organism COMPLETE BLOOD COUNT Routine 06/05/2024 9:58 AM EST Essential (primary) hypertension Pneumonia, unspecified organism from Last 3 Months Results * (ABNORMAL) Complete blood count (07/08/2024 5:31 AM EST) Only the most recent of6 resultswithin the time period is included. WBC 9.9 4.8 - 10.8 K/mcL LAB HEMETOLOGY METHOD 07/08/2024 11:25 AM [facility] RBC 4.00(L) 4.50 - 5.50 M/mcL LAB HEMETOLOGY METHOD 07/08/2024 11:25 AM [facility] LAB Hemoglobin 11.3(L) 13.5 - 17.5 g/dL LAB HEMETOLOGY METHOD 07/08/2024 11:25 AM [facility] LAB Hematocrit 36.3(L) 42.0 - 54.0 % LAB HEMETOLOGY METHOD 07/08/2024 11:25 AM [facility] LAB MCV 91.2 79.0 - 98.0 FL LAB HEMETOLOGY METHOD 07/08/2024 11:25 AM [facility] LAB MCH 28.4 27.0 - 32.0 pcg LAB HEMETOLOGY METHOD 07/08/2024 11:25 AM [facility] LAB MCHC 31.1(L) 32.0 - 37.0 g/dL LAB HEMETOLOGY METHOD 07/08/2024 11:25 AM [facility] LAB RDW 16.0(H) 11.0 - 15.0 % LAB HEMETOLOGY METHOD 07/08/2024 11:25 AM [facility] Platelets 326 130 - 400 K/mcL LAB HEMETOLOGY METHOD 07/08/2024 11:25 AM [facility] MPV 9.7 7.0 - 11.0 FL LAB HEMETOLOGY METHOD 07/08/2024 11:25 AM [facility] LAB NRBC 0.0 <1.0 % LAB HEMETOLOGY METHOD 07/08/2024 11:25 AM [facility] LAB NRBC Absolute 0.00 <0.10 K/mcL LAB HEMETOLOGY METHOD 07/08/2024 11:25 AM [facility] Blood Venous blood specimen / Unknown Venipuncture / Unknown 07/08/2024 5:31 AM EST 07/08/2024 11:12 AM EST us Vickie Claire MD LAB BLOOD ORDERABLES Fin al Result [facility] [address] [place] [address], * (ABNORMAL) Basic metabolic panel (07/08/2024 5:31 AM EST) Only the most recent of6 resultswithin the time period is included. Sodium 135 133 - 145 mmol/L LAB CHEMISTRY METHOD 07/08/2024 11:54 AM [facility] Potassium 4.2 3.5 - 5.5 mmol/L LAB CHEMISTRY METHOD 07/08/2024 11:54 AM [facility] Chloride 98 96 - 110 mmol/L LAB CHEMISTRY METHOD 07/08/2024 11:54 AM [facility] CO2 32 21 - 32 mmol/L LAB CHEMISTRY METHOD 07/08/2024 11:54 AM [facility] Anion Gap 5 3 - 11 LAB CHEMISTRY METHOD 07/08/2024 11:54 AM [facility] Glucose 87 70 - 100 mg/dL LAB CHEMISTRY METHOD 07/08/2024 11:54 AM [facility] BUN 12 5 - 25 mg/dL LAB CHEMISTRY METHOD 07/08/2024 11:54 AM [facility] Creatinine 0.64(L) 0.70 - 1.30 mg/dL LAB CHEMISTRY METHOD 07/08/2024 11:54 AM [facility] LAB eGFR 98 >=60 mL/min/1. 73m2 LAB CHEMISTRY METHOD 07/08/2024 11:54 AM [facility] LAB Comment:Calculation based on the??Chronic Kidney Disease Epidemiology Collaboration (CKD-EPI) equation refit??without adjustment for race. BUN/Creatinine Ratio 18.8 LAB CHEMISTRY METHOD 07/08/2024 11:54 AM EST [facility] Calcium 8.8 8.5 - 10.5 mg/dL LAB CHEMISTRY METHOD 07/08/2024 11:54 AM EST [facility]) [facility] Blood Venous blood specimen / Unknown Venipuncture / Unknown 07/08/2024 5:31 AM EST 07/08/2024 11:13 AM EST us Vickie Claire MD LAB BLOOD ORDERABLES Fin al Result [facility] [address] [place] [address], [place] [phone] from Last 3 Months Insurance [facility] [place] [id number] MEDICAID - [place] Advance Directives Documents on File Type Date Recorded Patient Portuguese Tutor Expl anation Health Care Decision (hx) 09/26/2016 ELIANA ELIZONDO DIRECTIVE Care Teams Circus Hand Relationship Specialty Start Date End Date Vickie Claire MD [address] [place] [address] PCP - General Family Medicine 06/05/24
--- OUTSIDE RECORDS SUMMARY | 2024-07-15 10:15 | XMS_ITS | Encounter Summary ---
Author Organization [employer] Address [address] [place] [address] [address] [place] [address] Care Team Providers Care Wire Mill Rover Name Role Phone Brianna Corral MD Primary Care Provider [phone] Encounter Details Date Type Department Care Team (Late st Contact Info) Description 05/06/2022 [facility] Only [facility] [address] [place] [address] Brianna Croral MD [address] [place], [place] [phone] Social History Tobacco Use Types Packs/Day Years [...] 07/22/2024 2:00 PM EST Office Visit [facility] [address] [place], [place] [phone] Joyce Edwards [address] [place], [place] [phone] documented as of this encounter Visit Diagnoses Not on filedocumented in this encounter Care Teams Wire Mill Rover Relationship Specialty Start Date End Date Brianna Corral MD [address] [place] [address] PCP - General Family Medicine 10/06/14 [employer] 04/22/24 documented as of this encounter
[2024-07-15 14:49] LABS: Alanine Aminotransferase 19 U/L (0-40); Albumin Level 3.6 g/dL (3.5-5.0); Alkaline Phosphatase 54 U/L (39-117); Anion Gap 11 (12-20); Aspartate Amino Transferase 33 U/L (5-37); Bilirubin Direct 0.2 mg/dL (0.0-0.5); Bilirubin Total 0.3 mg/dL (0.0-1.0); Blood Urea Nitrogen 12 mg/dL (9-16); Calcium 8.9 mg/dL (8.4-10.2); Carbon Dioxide 27 mmol/L (22-29); Chloride 98 mmol/L (96-108); Cholesterol 112 mg/dL (<200); Estimated Glomerular Filt Rate > 60; Glucose Random 111 mg/dL (60-115); HDL Cholesterol 58 mg/dL (>40); LDL Cholesterol Calculated 47 mg/dL (<100); Potassium 4.1 mmol/L (3.3-5.1); Sodium 132 mmol/L (135-145); Total Protein 7.2 g/dL (6.5-8.0); Triglycerides 37 mg/dL (<150)
== END 2024-07-15 09:28 | disposition home or self-care (01) ==
LOC: HO.CHCLDS 09:27
PROVIDERS: Visit Provider Student in an Organized Health Care Education/Training Program
DX: I10 Essential (primary) hypertension (principal)
CPT/HCPCS: 36415; 80048; 80061; 80076